=== PATIENT | female | born 1965 | race Caucasian/White ===

== ENCOUNTER → 2016-03-19 | Outpatient (CLI) | payer OTHER ==
--- NOTE | 2016-03-19 11:54 | MR ---
MRI of the brain with and without contrast HISTORY: MS follow-up COMPARISON: 03/20/2015 TECHNIQUE: T1-weighted sagittal, T2, FLAIR, and diffusion axial, postcontrast T1 axial and coronal views of the brain are submitted. CONTRAST: 18 mL MultiHance FINDINGS: There is no evidence of acute ischemia. The ventricles, basal cisterns, and sulci overlying the co nvexities are consistent with the patient's age. There is no mass effect or enhancing mass. Craniocervical junction maintained. Sella turcica has a normal appearance. Changes of chronic sinusit is noted. T2 Lesions Present : Yes Approximate Number of Lesions: Approximately 20 lesions are noted in the right cerebral hemisphere an d 20 lesions on the left. Locations Identified : Predominantly small superficial and deep white matter lesions. No significant juxtacortical or pericallosal involvement. No temporal or infratentorial abnormality seen. Size of Largest Lesion(s): 1. Largest lesion right cerebral hemisphere is located within the posterior right conn radiata and measures 5.2 mm in greatest dimension and stable from previous. 2. largest lesion left cerebral hemisphere measures 4 mm and stable. Enhancing Lesion(s) Present: None Change from Prior: Stable IMPRESSION: 1. Stable diffuse white matter changes unchanged in number, size or morphology from previous exam. Co rrelate for demyelinating process.
== END | disposition home or self-care (01) ==
LOC: RADMRIMAIN 09:29
PROVIDERS: ATTEND Psychiatry & Neurology Neurology
DX: R90.82 White matter disease, unspecified (principal)
CPT/HCPCS: 70553; A9577

== ENCOUNTER → 2016-05-16 | Outpatient (CLI) | payer OTHER ==
[2016-05-16 12:57] LABS: Basophils # (A) 0.1 k/uL (0-0.2); Basophils % (A) 1 %; CH 27.6; CHCM 31.3; Eosinophils # (A) 0.3 k/uL (0-0.7); Eosinophils % (A) 3 %; HCT 43.4 % (34.0-46.0); HDW 2.54; HGB 14.1 gm/dL (11.4-16.0); Luc # (Auto) 0.16; Luc % (Auto) 2; Lymphocytes # (A) 2.5 k/uL (1.0-4.8); Lymphocytes % (A) 30 %; MCH 28.8 pg (25.0-35.0); MCHC 32.5 g/dL (31.0-37.0); MCV 88.6 fL (80.0-100.0); Monocytes # (A) 0.3 k/uL (0-1.0); Monocytes % (A) 4 %; Neutrophils # (A) 4.9 k/uL (1.3-7.7); Neutrophils % (A) 60 %; RDW 13.7 % (11.5-15.5); WBC 8.2 k/uL (3.8-10.6); WBC (Perox) 8.66
[2016-05-16 13:38] LABS: ALT 24 U/L (9-52); AST 22 U/L (14-36); Alkaline Phosphatase 198 U/L (38-126); Anion Gap 11 mmol/L; Blood Urea Nitrogen 15 mg/dL (7-17); Calcium 9.9 mg/dL (8.4-10.2); Carbon Dioxide 23 mmol/L (22-30); Chloride 110 mmol/L (98-107); Glucose 88 mg/dL (74-99); Non-African American GFR(MDRD) >60 (>60 ml/min/1.73 sqM); Potassium 4.3 mmol/L (3.5-5.1); Sodium 144 mmol/L (137-145); Total Bilirubin 0.5 mg/dL (0.2-1.3); Total Protein 7.2 g/dL (6.3-8.2)
[2016-05-16 14:22] LABS: Vitamin B12 406 pg/mL (239-931)
== END | disposition home or self-care (01) ==
LOC: LABWHC1 12:38
PROVIDERS: ATTEND Nurse Practitioner Acute Care
DX: G35 Multiple sclerosis (principal); E55.9 Vitamin D deficiency, unspecified
CPT/HCPCS: 36415; 80053; 82306; 82607; 84439; 84443; 84481; 85025

== ENCOUNTER → 2016-06-06 | Outpatient (CLI) | payer OTHER ==
--- NOTE | 2016-06-06 07:52 | US ---
EXAMINATION TYPE: US abdomen limited DATE OF EXAM: 06/06/2016 7:17 AM COMPARISON: NONE CLINICAL HISTORY: 50-year-old female R10.11 RUQ abdominal Pain. TECHNIQUE: Multiple sonographic images of the right upper quadrant are obtained. FINDINGS: Liver Length: 15.5 cm Gallbladder Wall: 0.2 cm CBD: 7.1 mm Right Kidney: 10.5 x 4.5 x 4.4 cm Pancreas: Within normal limits Liver: Coarsened echotexture without focal lesion. Gallbladder: No abnormal gallbladder distention, wall thickening, pericholecystic fluid, or shadowin g calculi. Evidence for sonographic Sanders's sign: yes CBD: Mildly dilated with no obstructing lesion seen in the upper to mid bile duct. Right Kidney: No hydronephrosis. IMPRESSION: 1. Coarsened echotexture of the liver could represent underlying nonspecific hepatocellular disease. Clinically correlate. 2. Mildly dilated bile duct. Correlate with alkaline phosphatase and bilirubin levels for the possibi lity of a biliary obstruction. ERCP or MRCP as indicated. 3. Positive sonographic Sanders sign without sonographic findings of cholelithiasis or acute cholecyst itis. This could represent referred pain. If further imaging evaluation of the gallbladder is desired , HIDA scan with ejection fraction can be performed.
== END | disposition home or self-care (01) ==
LOC: RADUSWWP 06:54
PROVIDERS: ATTEND Family Medicine
DX: K83.8 Other specified diseases of biliary tract (principal); R10.11 Right upper quadrant pain
CPT/HCPCS: 76705

== ENCOUNTER 2016-06-18 10:02 | Day surgery (SDC) | payer OTHER ==
[2016-06-14 11:47] VITALS: BMI 28.9
[~2016-06-18 10:02] MED LIST: LACTATED RINGERS 1,000 ML IV SCH
[2016-06-18 11:24] VITALS: TEMP 97.9
[2016-06-18] MEDS ORDERED: LIDOCAINE 1% 20 ML VIAL (10MG/ML) FOR IV START INTRADERMA ONE (11:24)
[2016-06-18] MEDS ORDERED: LIDOCAINE 1% INJ 10MG/ML (20 ML MDV) ONE (11:46)
[2016-06-18] MEDS ORDERED: PROPOFOL 10 MG/ML 20 ML VIAL IV ONE (11:46)
--- NOTE | 2016-06-18 12:13 | P.PCN ---
Date of Procedure: 06/18/16 Procedure(s) Performed: Procedure: Esophagogastroduodenoscopy and biopsy. Postoperative diagnosis: Epigastric pain and dysphagia. Postoperative diagnosis: 1. Small sliding hiatal hernia with no definite esophagitis or complicated reflux disease. 2. Small sticky was exudates in the esophagus raising the possibility of liz esophagitis. 3. Mild antral gastritis and duodenitis with no ulcers or gastric outlet obstruction. 4. Multiple biopsies obtained from the duodenum, antrum and esophagus. Preparation and sedation: Was provided by anesthesia. Brief clinical history: The patient is a 50-year-old female who I have evaluated recently in the office regarding the above symptoms. She indicated that this has been going on for several years. She did have an upper endoscopy in August 2013 that showed mild antral gastritis. Back than, her esophageal biopsies showed chronic esophagitis. Procedure: With the patient on her left lateral decubitus position and after informed consent and adequate sedation, I passed the Olympus-GIF 160 video upper endoscope through the cricopharyngeus down the esophagus. GE junction was around 38 cm from the incisors and there was a small sliding hiatal hernia. There were no erosions, ulcers, strictures or Asif's for this. There was small white sticky exudates that I was not certain if they represented food debris or liz infection. I obtained biopsies at the end of the exam. The stomach was also insufflated with air and inspected in detail including the retroflex view in the cardia. There was some mottling and erythema in the antrum but no ulcers or erosions. Pyloric channel did not show any ulcers. Duodenal bulb, post bulbar area and descending duodenum showed minimal erythema. Because of her symptoms, I obtained biopsies from the duodenum, antrum and addition to the esophageal biopsies, I mentioned earlier, then the endoscope was withdrawn. The patient tolerated the procedure well. Plan: The patient was reassured. Will await biopsy results and make further plans based on her course and biopsy results. I will keep you updated on her progress.
[2016-06-18 12:44] VITALS: RESP 16
[2016-06-18 12:57] VITALS: BP 152/90; PULSE 78
== END 2016-06-18 13:12 | disposition home or self-care (01) ==
LOC: ORWHC2ENDO 10:02
DX: K21.0 Gastro-esophageal reflux disease with esophagitis (principal); K44.9 Diaphragmatic hernia without obstruction or gangrene; J44.9 Chronic obstructive pulmonary disease, unspecified; F17.200 Nicotine dependence, unspecified, uncomplicated; G35 Multiple sclerosis; F41.9 Anxiety disorder, unspecified; Z79.1 Long term (current) use of non-steroidal anti-inflammatories (NSAID); Z79.891 Long term (current) use of opiate analgesic; Z79.899 Other long term (current) drug therapy; Z88.6 Allergy status to analgesic agent; Z88.0 Allergy status to penicillin; Z88.8 Allergy status to other drugs, medicaments and biological substances
CPT/HCPCS: 88305; 88312; 88342; 43239; J2001; J2704

== ENCOUNTER → 2017-04-30 | Outpatient (CLI) | payer OTHER ==
--- NOTE | 2017-04-30 12:24 | MR ---
EXAMINATION TYPE: MR lumbar spine wo con DATE OF EXAM: 04/30/2017 COMPARISON: 10/08/2013 HISTORY: Low back pain TECHNIQUE: T1 and T2 axial and sagittal images of the lumbar spine are submitted. Exam is limited d ue to severe patient motion artifact. FINDINGS: There is no abnormal signal seen within the visualized spinal cord or paraspinal soft tissu es. At L1-2 there is no obvious disc herniation or canal stenosis. No foraminal encroachment. At L2-3 there is there is facet arthropathy with no obvious disc herniation or canal stenosis. No for aminal encroachment. At L3-4 there is more advanced facet arthropathy and ligamentum flavum hypertrophy. Mild circumferent ial disc bulging. No foraminal encroachment or canal stenosis. At L4-5 there is advanced facet arthropathy with ligamentum flavum hypertrophy. Mild bilateral forami nal encroachment. No Canal stenosis. At L5-S1 there is facet arthropathy with mild central disc bulging and mild bilateral foraminal encro achment. Ligamentum flavum hypertrophy noted. There is an annular tear. IMPRESSION: 1. Stable multilevel degenerative disc disease with more advanced facet arthropathy. No disc herniati on or canal stenosis. Multilevel mild foraminal encroachment. Routine exam was severely limited due t o extreme motion artifact particularly on the axial images.
--- NOTE | 2017-04-30 17:24 | MR ---
EXAMINATION TYPE: MR brain wo/w con DATE OF EXAM: 04/30/2017 COMPARISON: Prior MRI brain March 19, 2016. HISTORY: MS TECHNIQUE: Multiplanar, multisequence images of the brain and brainstem is performed without and with IV contras t, utilizing 7.5 mL intravenous Gadavist gadolinium contrast is administered intravenously. Demyelin ating disease protocol with additional Sagittal Flair sequence performed. FINDINGS: T2 Lesions Present : Yes Approximate Number of Lesions: Approximately 40 scattered lesions redemonstrated. Locations Identified : Predominately small superficial and deep white matter lesions again seen. Size of Reference Lesion(s): 1. 0.5 cm x 0.3 cm x 0.3 cm on axial image 22 and sagittal image 26 right parietal deep white matter lesion stable 2 0.4 cm x 0.4 cm x 0.3 cm on axial image 25 and sagittal image 13 high left frontal lesion stable. Enhancing Lesion(s) Present: No T1 Hypointense Lesion(s) Present: Yes Change from Prior: Stable, Increase in number, decrease Diffusion weighted images demonstrate no evidence of a recent infarct or other diffusion abnormality. There is no worrisome extra-axial fluid collection. The ventricular system and cisternal spaces ar e normal in size and appearance. The brain volume is age appropriate. Midline structures demonstrate normal morphology. The craniocervical junction appears within normal limits. Post contrast images demonstrate no abnormal enhancement. The dural venous sinuses appear pa tent. There is interval improvement in mucosal thickening and fluid bilateral maxillary sinuses. Brittaney roberto paranasal sinuses are clear. The globes are intact bilaterally. IMPRESSION: Fairly moderate nonspecific white matter changes redemonstrated may be on basis of known multiple sclerosis. No new or enhancing lesions are evident.
== END | disposition home or self-care (01) ==
LOC: RADMRIMAIN 10:35
PROVIDERS: ATTEND Psychiatry & Neurology Neurology
DX: M51.36 Other intervertebral disc degeneration, lumbar region (principal); M46.96 Unspecified inflammatory spondylopathy, lumbar region; R90.89 Other abnormal findings on diagnostic imaging of central nervous system
CPT/HCPCS: 70553; 72148; A9581

== ENCOUNTER → 2017-10-14 | Outpatient (CLI) | payer OTHER ==
[2017-10-14 13:44] LABS: Basophils % (A) 0 %; Eosinophils # (A) 0.1 k/uL (0-0.7); Eosinophils % (A) 1 %; HCT 43.5 % (34.0-46.0); HGB 13.9 gm/dL (11.4-16.0); Lymphocytes # (A) 1.9 k/uL (1.0-4.8); Lymphocytes % (A) 22 %; MCH 27.5 pg (25.0-35.0); MCHC 31.9 g/dL (31.0-37.0); MCV 86.3 fL (80.0-100.0); Mean Platelet Volume 6.9; Monocytes # (A) 0.3 k/uL (0-1.0); Monocytes % (A) 3 %; Neutrophils # (A) 6.4 k/uL (1.3-7.7); Neutrophils % (A) 72 %; Platelet Count 247 k/uL (150-450); RBC 5.03 m/uL (3.80-5.40); RDW 14.4 % (11.5-15.5); WBC 8.8 k/uL (3.8-10.6)
[2017-10-14 13:55] LABS: ALT 25 U/L (9-52); AST 20 U/L (14-36); Alkaline Phosphatase 135 U/L (38-126); Anion Gap 6 mmol/L; Blood Urea Nitrogen 10 mg/dL (7-17); Carbon Dioxide 24 mmol/L (22-30); Chloride 112 mmol/L (98-107); Glucose 79 mg/dL (74-99); Potassium 4.4 mmol/L (3.5-5.1); Sodium 142 mmol/L (137-145); Total Bilirubin 0.4 mg/dL (0.2-1.3); Total Protein 6.4 g/dL (6.3-8.2)
[2017-10-14 20:54] LABS: Vitamin D 25 Hydroxy 29.3 ng/mL (30.0-100.0)
== END | disposition home or self-care (01) ==
LOC: LABWHC1 12:38
PROVIDERS: ATTEND Nurse Practitioner Acute Care
DX: G35 Multiple sclerosis (principal); E55.9 Vitamin D deficiency, unspecified; R53.83 Other fatigue
CPT/HCPCS: 36415; 80053; 82306; 82607; 84207; 85025

== ENCOUNTER 2018-04-04 19:26 | Emergency (ER) | payer OTHER ==
[2018-04-04 19:34] VITALS: BP 146/69; PULSE 86; RESP 18; TEMP 97.5
--- NOTE | 2018-04-04 19:50 | ED ---
Back Pain HPI - General Chief Complaint: Back Pain/Injury Stated Complaint: Back pain/flank pain Time Seen by Provider: 04/04/18 19:37 Source: patient Limitations: no limitations - History of Present Illness Initial Comments: 52-year-old female presents with leftt low back discomfort this been on and off for the last few weeks. Patient was seen at [facility] ER week ago for the same thing. Patient denies any direct injury. There is no fall. Patient having pain in her left low back rib area discomfort. Patient states it's hard to take a full breath due to the pain. Patient has been taking some Tylenol at home. Patient does have a history of asthma. Patient denies any bowel bladder incontinence or saddle numbness. Patient has been using a heating pad. MD Complaint: back pain -: week(s) Radiation: none Severity scale (1-10): 10 Quality: burning Consistency: constant Improves With: none Worsens With: movement Treatments Prior to Arrival: heat therapy - Related Data Home Medications Medication Instructions Recorded Confirmed Dicyclomine HCl 10 mg PO BID PRN 07/08/13 06/18/16 ALPRAZolam [Xanax] 2 mg PO QID PRN 09/06/13 06/18/16 SUMAtriptan SUCCINATE [Imitrex] 50 mg PO BID PRN 03/28/15 06/18/16 Albuterol Inhaler [Ventolin Hfa 2 puff INHALATION RT-QID PRN 07/03/15 06/18/16 Inhaler] Avonex 1 dose IM SA 07/03/15 06/18/16 Baclofen [Lioresal] 10 mg PO TID PRN 07/03/15 06/18/16 Butalb/APAP/Caff 50-325-40Mg 1 tab PO Q6H PRN 07/03/15 06/18/16 [Fioricet 50-325-40] Fluticasone Nasal Emmet [Flonase 1 spray EA NOSTRIL DAILY 07/03/15 06/18/16 Nasal Emmet] Omeprazole [PriLOSEC] 20 mg PO DAILY 07/03/15 06/18/16 oxyCODONE-APAP 10-325MG [Percocet 1 tab PO TID PRN 07/03/15 06/18/16 10-325 mg] Budesonide/Formoterol Fumarate 2 puff INHALATION BID 06/14/16 06/18/16 [Symbicort 160-4.5 Mcg Inhaler] Naproxen 500 mg PO Q12HR 06/14/16 06/18/16 Previous Rx's Medication Instructions Recorded Cyclobenzaprine HCl 10 mg PO TID #20 tab 04/04/18 Hydrocodone/Acetaminophen [Cadet 1 each PO Q6HR PRN #12 tab 04/04/18 5-325] Allergies Allergy/AdvReac Type Severity Reaction Status Date / Time aspirin Allergy Itching Verified 06/18/16 11:11 ibuprofen Allergy Itching Verified 06/18/16 11:11 Penicillins Allergy Rash/Hives Verified 06/18/16 11:11 Review of Systems ROS Statement: Those systems with pertinent positive or pertinent negative responses have been documented in the HPI. ROS Other: All systems not noted in ROS Statement are negative. Respiratory: Denies: cough, dyspnea Endocrine: Denies: fatigue Gastrointestinal: Denies: abdominal pain Musculoskeletal: Reports: back pain Neurological: Reports: abnormal gait (arrived in WC). Denies: weakness, numbness, paresthesias Past Medical History Past Medical History: COPD, GERD/Reflux, Musculoskeletal Disorder, Neurologic Disorder Additional Past Medical History / Comment(s): DDD, hx migraines, M.S., constant epigastric pain History of Any Multi-Drug Resistant Organisms: None Reported Past Surgical History: Section, Hysterectomy, Orthopedic Surgery, Tubal Ligation Additional Past Surgical History / Comment(s): rt knee surgery cyst off right eye Past Anesthesia/Blood Transfusion Reactions: No Reported Reaction Past Psychological History: Anxiety, Panic Disorder Smoking Status: Current every day smoker Past Alcohol Use History: None Reported Past Drug Use History: None Reported - Past Family History Mother Sister(s) Additional Family Medical History / Comment(s): mother passed age 42 unknown reason General Exam Limitations: no limitations General appearance: alert Neck exam: Present: normal inspection. Absent: tenderness, meningismus, lymphadenopathy Respiratory exam: Present: normal lung sounds bilaterally. Absent: respiratory distress, wheezes, rales, rhonchi, stridor Cardiovascular Exam: Present: regular rate, normal rhythm, normal heart sounds. Absent: systolic murmur, diastolic murmur, rubs, gallop, clicks GI/Abdominal exam: Present: soft, normal bowel sounds. Absent: distended, tenderness, guarding, rebound, rigid Back exam: Present: normal inspection, tenderness, CVA tenderness (L), muscle spasm, paraspinal tenderness (left, mid-low). Absent: full ROM Neurological exam: Present: alert, oriented X3, CN II-XII intact Psychiatric exam: Present: normal affect, normal mood Skin exam: Present: warm, dry, intact, normal color. Absent: rash Course Vital Signs 04/04/18 19:29 Temperature 97.5 F L Pulse Rate 86 Respiratory 18 Rate Blood Pressure 146/69 O2 Sat by Pulse 98 Oximetry Medical Decision Making - Medical Decision Making Reviewed x-rays and radiology interpretation negative for any acute changes except to Jo changes patient and family aware. Patient does admit to medications helping slightly. Patient will be discharged with muscle relaxer and pain medication. Patient encouraged to do gentle stretching along with heat. Patient have close follow-up with family doctor if not improving. Return to ER if things are worsening.discussed with dr. winter Disposition Clinical Impression: Strain of lumbar region Disposition: HOME SELF-CARE Condition: Good Instructions (If sedation given, give patient instructions): Acute Low Back Pain (ED) Prescriptions: Cyclobenzaprine HCl 10 mg PO TID #20 tab Hydrocodone/Acetaminophen [Cadet 5-325] 1 each PO Q6HR PRN #12 tab PRN Reason: Pain Is patient prescribed a controlled substance at d/c from ED?: Yes When asked, does pt state using other controlled substances?: No If prescribed controlled substance>3 days was MAPS reviewed?: Prescribed <3 Days If opioid is for acute pain is fill amount 7 days or less?: No If Rx opioid, was Start Talking consent form obtained?: Yes Referrals: Michele Andrews MD [Primary Care Provider] - 1-2 days Time of Disposition: 20:36
[2018-04-04] MEDS ORDERED: KETOROLAC 60 MG/2 ML VIAL IM STA (20:04)
--- NOTE | 2018-04-04 20:04 | XR ---
EXAMINATION TYPE: XR KUB DATE OF EXAM: 04/04/2018 7:58 PM CLINICAL HISTORY: Left rib and abdominal pain TECHNIQUE: 2 upright AP views of the abdomen are obtained. COMPARISON: None. FINDINGS: No dilated loops of large or small bowel. No visceromegaly. Multilevel degenerative changes are seen of the spine and hips. No acute osseous fracture. Limited evaluation of the lower thorax is unremarkable. IMPRESSION: No acute intra-abdominal or pelvic process.
--- NOTE | 2018-04-04 20:05 | XR ---
EXAMINATION TYPE: XR ribs LT w pa chest x-ray DATE OF EXAM: 04/04/2018 CLINICAL HISTORY: Left rib pain TECHNIQUE: Single frontal view of the chest is obtained. Additional oblique views of the left ribs ar e also obtained. COMPARISON: None FINDINGS: There is no focal air space opacity, pleural effusion, or pneumothorax seen. The cardiac silhouette size is within normal limits. The osseous structures are intact. No evidence of displace d rib fracture. IMPRESSION: No acute process. No displaced rib fracture.
[2018-04-04] MEDS ORDERED: CYCLOBENZAPRINE 10 MG TAB PO STA (20:08)
== END 2018-04-04 21:01 | disposition home or self-care (01) ==
LOC: EC 19:26
DX: S39.012A Strain of muscle, fascia and tendon of lower back, initial encounter (principal); J44.9 Chronic obstructive pulmonary disease, unspecified; K21.9 Gastro-esophageal reflux disease without esophagitis; F41.0 Panic disorder [episodic paroxysmal anxiety]; F17.200 Nicotine dependence, unspecified, uncomplicated; Z79.51 Long term (current) use of inhaled steroids; Z79.899 Other long term (current) drug therapy; Z88.0 Allergy status to penicillin; Z88.6 Allergy status to analgesic agent; X58.XXXA Exposure to other specified factors, initial encounter
CPT/HCPCS: 71101; 74018; 99283; 96372; J1885

== ENCOUNTER → 2018-04-30 | Outpatient (CLI) | payer OTHER ==
[2018-04-30 12:56] LABS: Basophils # (A) 0.1 k/uL (0-0.2); Basophils % (A) 1 %; Eosinophils # (A) 0.1 k/uL (0-0.7); Eosinophils % (A) 1 %; HCT 46.3 % (34.0-46.0); HGB 14.2 gm/dL (11.4-16.0); Lymphocytes # (A) 2.5 k/uL (1.0-4.8); Lymphocytes % (A) 27 %; MCH 26.4 pg (25.0-35.0); MCHC 30.6 g/dL (31.0-37.0); MCV 86.3 fL (80.0-100.0); Mean Platelet Volume 5.9; Monocytes # (A) 0.3 k/uL (0-1.0); Monocytes % (A) 3 %; Neutrophils # (A) 6.3 k/uL (1.3-7.7); Neutrophils % (A) 67 %; Platelet Count 495 k/uL (150-450); RBC 5.36 m/uL (3.80-5.40); WBC 9.4 k/uL (3.8-10.6)
[2018-04-30 18:57] LABS: Vitamin D 25 Hydroxy 33.7 ng/mL (30.0-100.0)
[2018-04-30 20:52] LABS: Albumin 4.7 g/dL (3.80-4.90); Albumin/Globulin Ratio 1.96 (1.60-3.17); Anion Gap 9.1 mmol/L (4.00-12.00); Calcium 10.2 mg/dL (8.7-10.3); Carbon Dioxide 21.9 mmol/L (21.6-31.8); Globulin 2.4 g/dL (1.6-3.3); Potassium 4.4 mmol/L (3.5-5.5); Total Bilirubin 0.3 mg/dL (0.3-1.2); Total Protein 7.1 g/dL (6.2-8.2)
== END ==
LOC: LABWHC1 11:35
PROVIDERS: ATTEND Nurse Practitioner Acute Care
DX: E55.9 Vitamin D deficiency, unspecified (principal); R53.82 Chronic fatigue, unspecified
CPT/HCPCS: 36415; 80053; 82306; 82607; 84207; 85025

== ENCOUNTER 2019-09-02 09:52 | Day surgery (SDC) | payer OTHER ==
[2019-09-01 08:51] VITALS: BMI 22.7
[2019-09-02 10:11] VITALS: TEMP 98.2
[2019-09-02] MEDS ORDERED: PROPOFOL 10 MG/ML 20 ML VIAL IV ONE (10:27)
--- NOTE | 2019-09-02 10:28 | P.GSHP ---
History of Present Illness H&P Date: 09/02/19 Chief Complaint: Screening colonoscopy This a 54-year-old female been safe for screening colonoscopy. Patient denies any significant GI complaints. Past Medical History Past Medical History: COPD, GERD/Reflux, Hearing Disorder / Deafness, Musculoskeletal Disorder, Neurologic Disorder Additional Past Medical History / Comment(s): DDD, hx migraines, M.S., constant epigastric pain. DEAF RT EAR History of Any Multi-Drug Resistant Organisms: None Reported Past Surgical History: Section, Hysterectomy, Orthopedic Surgery, Tubal Ligation Additional Past Surgical History / Comment(s): rt knee surgery, cyst off right eye, Past Anesthesia/Blood Transfusion Reactions: No Reported Reaction Smoking Status: Current every day smoker - Past Family History Mother Sister(s) Additional Family Medical History / Comment(s): mother passed age 42 unknown reason Medications and Allergies Home Medications Medication Instructions Recorded Confirmed Type SUMAtriptan succinate [Imitrex] 50 mg PO BID PRN 03/28/15 09/02/19 History Albuterol Inhaler (Mhu) [Ventolin 2 puff INHALATION RT-QID PRN 07/03/15 09/02/19 History Hfa Inhaler] Butalb/APAP/Caff 50-325-40Mg 1 tab PO Q6H PRN 07/03/15 09/02/19 History [Fioricet 50-325-40] oxyCODONE-APAP 10-325MG [Percocet 1 tab PO TID PRN 07/03/15 09/02/19 History 10-325 mg] ALPRAZolam [Xanax] 1 mg PO QID 09/01/19 09/02/19 History Baclofen [Lioresal] 20 mg PO TID 09/01/19 09/02/19 History Glycopyrrolate/Formoterol Fum 1 puff INHALATION DAILY 09/01/19 09/02/19 History [Bevespi Aerosphere Inhaler] Montelukast [Singulair] 10 mg PO DAILY 09/01/19 09/02/19 History Omeprazole 40 mg PO DAILY 09/01/19 09/02/19 History Allergies Allergy/AdvReac Type Severity Reaction Status Date / Time aspirin Allergy Itching Verified 09/02/19 10:07 ibuprofen Allergy Itching Verified 09/02/19 10:07 Penicillins Allergy Rash/Hives Verified 09/02/19 10:07 Surgical - Exam Vital Signs Temp Pulse Resp BP Pulse Ox 98.2 F 86 15 115/67 99 09/02/19 10:11 09/02/19 10:11 09/02/19 10:11 09/02/19 10:11 09/02/19 10:11 - General well developed, well nourished, no distress - Eyes PERRL - ENT normal pinna - Neck no masses - Respiratory normal expansion - Cardiovascular Rhythm: regular - Abdomen Abdomen: soft, non tender Assessment and Plan Assessment: We'll perform screening colonoscopy.
--- NOTE | 2019-09-02 10:38 | P.OP ---
Date of Procedure: 09/02/19 Preoperative Diagnosis: Screening colonoscopy Postoperative Diagnosis: Normal colonoscopy Procedure(s) Performed: Colonoscopy Anesthesia: MAC Surgeon: Gino Diaz Pathology: none sent Condition: stable Disposition: PACU Description of Procedure: PROCEDURE: The patient was placed on the endoscopy table in the lateral position. Digital rectal examination was performed which revealed no abnormalities. s. Flexible colonoscope was then placed in the patient's anus and passed throughout the entire colon. The ileocecal valve was visualized. The cecum, ascending, transverse, descending and sigmoid colon were normal. The rectum was normal as well. There were no masses, polyps or diverticula noted in the entire colon.
[2019-09-02 10:49] VITALS: RESP 16
[2019-09-02 11:09] VITALS: BP 122/76; PULSE 76
== END 2019-09-02 11:45 | disposition home or self-care (01) ==
LOC: ORWHC2ENDO 09:52
PROVIDERS: ATTEND Surgery
DX: Z12.11 Encounter for screening for malignant neoplasm of colon (principal); K21.9 Gastro-esophageal reflux disease without esophagitis; R10.13 Epigastric pain; J44.9 Chronic obstructive pulmonary disease, unspecified; G43.909 Migraine, unspecified, not intractable, without status migrainosus; G35 Multiple sclerosis; H91.91 Unspecified hearing loss, right ear; Z90.710 Acquired absence of both cervix and uterus; Z98.51 Tubal ligation status; Z98.890 Other specified postprocedural states; F17.210 Nicotine dependence, cigarettes, uncomplicated; Z79.899 Other long term (current) drug therapy; Z88.6 Allergy status to analgesic agent; Z88.0 Allergy status to penicillin
CPT/HCPCS: J2704; G0121

== ENCOUNTER → 2019-09-30 | Outpatient (CLI) | payer OTHER ==
--- NOTE | 2019-10-01 08:54 | MM ---
Reason for exam: screening (asymptomatic). Last mammogram was performed 8 years and 11 months ago. History: Patient is postmenopausal. Family history of breast cancer in maternal aunt. Took hormonal contraceptives for 2 months beginning at age 22. Physical Findings: A clinical breast exam by your physician is recommended on an annual basis and results should be correlated with mammographic findings. MG Screening Mammo w CAD Bilateral CC and MLO view(s) were taken. Prior study comparison: October 30, 2010, CAD bilateral diagnostic mammogram. June 19, 2009, right breast diagnostic digital ba. The breast tissue is heterogeneously dense. This may lower the sensitivity of mammography. Finding #1: There is a 7 mm equal density (isodense) mass in the outer quadrant of the right breast. Finding #2: There are typically benign calcifications in the left breast. ASSESSMENT: Incomplete: need additional imaging evaluation, BI-RAD 0 RECOMMENDATION: Special view mammogram of the right breast. If lesion persists on supplemental views, image directed ultrasound is recommended. [facility] will attempt to contact patient to return for supplemental views and ultrasound if indicated.
== END | disposition home or self-care (01) ==
LOC: RADMAMWWP 10:46
PROVIDERS: ATTEND Family Medicine
DX: Z12.31 Encounter for screening mammogram for malignant neoplasm of breast (principal)
CPT/HCPCS: 77067

== ENCOUNTER → 2019-10-05 | Outpatient (CLI) | payer OTHER ==
--- NOTE | 2019-10-05 11:10 | MM ---
Reason for exam: additional evaluation requested from abnormal screening. Last mammogram was performed less than 1 month ago. History: Patient is postmenopausal. Family history of breast cancer in maternal aunt. Took hormonal contraceptives for 2 months beginning at age 22. Physical Findings: Nurse did not find any significant physical abnormalities on exam. MG Work Up Mamm w CAD RT Spot compression CC, spot compression MLO, and ML view(s) were taken of the right breast. Prior study comparison: September 30, 2019, bilateral MG screening mammo w CAD. October 30, 2010, CAD bilateral diagnostic mammogram. Nodular density 6.1cm from nipple measures 6.5mm. These results were verbally communicated with the patient and result sheet given to the patient on 10/05/19. ASSESSMENT: Incomplete: need additional imaging evaluation, BI-RAD 0 RECOMMENDATION: Ultrasound of the right breast.
--- NOTE | 2019-10-05 11:11 | USB ---
Reason for exam: additional evaluation requested from abnormal screening. History: Patient is postmenopausal. Family history of breast cancer in maternal aunt. Took hormonal contraceptives for 2 months beginning at age 22. US Breast Workup Limited RT Right limited breast ultrasound including focal area of concern, retroareolar and axilla demonstrates a 4 x 2 x 5mm oval, cystic lesion at 11 o'clock, a 6 x 3 x 5mm oval, cystic lesion at 10 o'clock, a 7mm oval lymph node at the axilla and a 9mm oval lymph node at the axilla. These results were verbally communicated with the patient and result sheet given to the patient on 10/05/19. ASSESSMENT: Benign, BI-RAD 2 RECOMMENDATION: Return to routine screening mammogram schedule for both breasts.
== END | disposition home or self-care (01) ==
LOC: RADMAMWWP 09:18
PROVIDERS: ATTEND Family Medicine
DX: R92.8 Other abnormal and inconclusive findings on diagnostic imaging of breast (principal)
CPT/HCPCS: 77065

== ENCOUNTER 2020-09-25 11:07 | Day surgery (SDC) | payer OTHER ==
[2020-09-21 15:26] VITALS: BMI 25.2
[~2020-09-25 11:07] MED LIST changes: +LIDOCAINE 1% (10MG/ML) FOR IV START INTRADERMA PRN
[2020-09-25 12:05] VITALS: TEMP 97.4
[2020-09-25] MEDS ORDERED: PROPOFOL 10 MG/ML 20 ML VIAL IV ONE (12:24)
--- NOTE | 2020-09-25 12:33 | P.GSHP ---
History of Present Illness H&P Date: 09/25/20 Chief Complaint: Hemorrhoids Is a 55-year-old female this completes of hemorrhoids and some intermittent rectal bleeding. Patient notes today for colonoscopy Past Medical History Past Medical History: COPD, GERD/Reflux, Hearing Disorder / Deafness, Musculoskeletal Disorder, Neurologic Disorder, Osteoarthritis (OA) Additional Past Medical History / Comment(s): DDD, hx migraines, M.S., BACK PAIN,. DEAF RT EAR History of Any Multi-Drug Resistant Organisms: None Reported Past Surgical History: Section, Hysterectomy, Orthopedic Surgery, Tubal Ligation Additional Past Surgical History / Comment(s): rt knee surgery- ARTHROSCOPIC , cyst off right eye, RECONSTRUCTIVE SURGERY ON RIGHT KNEE , COLONOSCOPY Past Anesthesia/Blood Transfusion Reactions: No Reported Reaction Smoking Status: Current every day smoker - Past Family History Mother Sister(s) Additional Family Medical History / Comment(s): mother passed age 42 unknown reason Mother Family Medical History: No Reported History Additional Family Medical History / Comment(s): MOTHER PASSED AT AGE 42 Medications and Allergies Home Medications Medication Instructions Recorded Confirmed Type SUMAtriptan succinate [Imitrex] 50 mg PO BID PRN 03/28/15 09/25/20 History Butalb/APAP/Caff 50-325-40Mg 1 tab PO Q8HR PRN 07/03/15 09/21/20 History [Fioricet 50-325-40] ALPRAZolam [Xanax] 1 mg PO QID 09/01/19 09/21/20 History Baclofen [Lioresal] 20 mg PO TID 09/01/19 09/21/20 History Glycopyrrolate/Formoterol Fum 1 puff INHALATION DAILY 09/01/19 09/21/20 History [Bevespi Aerosphere Inhaler] Montelukast [Singulair] 10 mg PO 1800 09/01/19 09/21/20 History Omeprazole 40 mg PO DAILY 09/01/19 09/25/20 History Albuterol Sulfate [Proair Hfa] 1 - 2 puff INHALATION Q6HR PRN 09/21/20 09/21/20 History Ascorbic Acid [Vitamin C with Carolyn 1,000 mg PO DAILY 09/21/20 09/21/20 History Hips] Cholecalciferol [Vitamin D3 (25 25 mcg PO DAILY 09/21/20 09/21/20 History Mcg = 1000 Iu)] Fluticasone Propionate [Flovent 2 puff INHALATION BID 09/21/20 09/21/20 History Hfa 220 mcg] Interferon Beta-1A [Avonex 30 MCG 30 mcg IM SA 09/21/20 09/25/20 History Pen] Vitamin B Complex 1 each PO DAILY 09/21/20 09/21/20 History Vitamin E (Dl,Tocopheryl Acet) 400 unit PO DAILY 09/21/20 09/21/20 History [Vitamin E (400 Iu = 180 mg)] Allergies Allergy/AdvReac Type Severity Reaction Status Date / Time aspirin Allergy Itching Verified 09/25/20 11:39 ibuprofen Allergy Itching Verified 09/25/20 11:39 menthol [From Icy Hot] Allergy Dyspnea Verified 09/25/20 11:39 methyl salicylate Allergy Dyspnea Verified 09/25/20 11:39 [From Icy Hot] Penicillins Allergy Rash/Hives Verified 09/25/20 11:39 Surgical - Exam Vital Signs Temp Pulse Resp BP Pulse Ox 97.4 F L 78 16 132/64 97 09/25/20 11:54 09/25/20 11:54 09/25/20 11:54 09/25/20 11:54 09/25/20 11:54 - General well developed, well nourished, no distress - Eyes PERRL - ENT normal pinna - Neck no masses - Respiratory normal expansion - Cardiovascular Rhythm: regular - Abdomen Abdomen: soft, non tender Assessment and Plan Assessment: History of hemorrhoids. Rectal bleeding We'll perform colonoscopy
--- NOTE | 2020-09-25 12:46 | P.OP ---
Date of Procedure: 09/25/20 Preoperative Diagnosis: External hemorrhoids Postoperative Diagnosis: Anal condyloma Procedure(s) Performed: Colonoscopy Anesthesia: MAC Surgeon: Gino Diaz Pathology: none sent Condition: stable Disposition: PACU Description of Procedure: The patient's placed on the endoscopy table in the lateral position. She received IV sedation. Digital rectal exam was performed which revealed external anal mass is suspicious for anal condyloma. The flexible colonoscope was then placed patient anus and passed rotator entire colon. The ileocecal valve was visually. The cecum, ascending and transverse colon appeared normal. The descending and sigmoid colon appeared normal. Scope was back the rectum this was normal. Scope was withdrawn for patient.
[2020-09-25 13:03] VITALS: BP 138/75; PULSE 75; RESP 16
== END 2020-09-25 13:27 | disposition home or self-care (01) ==
LOC: ORWHC2ENDO 11:07
PROVIDERS: ATTEND Surgery
DX: A63.0 Anogenital (venereal) warts (principal); K64.4 Residual hemorrhoidal skin tags; J44.9 Chronic obstructive pulmonary disease, unspecified; K21.9 Gastro-esophageal reflux disease without esophagitis; R29.90 Unspecified symptoms and signs involving the nervous system; M19.90 Unspecified osteoarthritis, unspecified site; F17.210 Nicotine dependence, cigarettes, uncomplicated; H91.90 Unspecified hearing loss, unspecified ear; G43.909 Migraine, unspecified, not intractable, without status migrainosus; Z79.899 Other long term (current) drug therapy; Z88.6 Allergy status to analgesic agent; Z88.0 Allergy status to penicillin; Z88.8 Allergy status to other drugs, medicaments and biological substances
CPT/HCPCS: 45378; J2704

== ENCOUNTER 2020-10-10 08:19 | Emergency (ER) | payer OTHER ==
[2020-10-10 08:29] VITALS: RESP 18; TEMP 98.3
[2020-10-10] MEDS ORDERED: MORPHINE SULFATE 4 MG/ML SYRINGE IM STA (08:53)
--- NOTE | 2020-10-10 09:04 | ED ---
General Adult HPI - General Chief complaint: GI Bleed Stated complaint: rectal bleeding Time Seen by Provider: 10/10/20 08:42 Source: patient, RN notes reviewed Mode of arrival: ambulatory Limitations: no limitations - History of Present Illness Initial comments: 55-year-old female with a past medical history of GERD, COPD, deafness presents to the emergency room for a chief complaint of rectal "polyps." Patient states she has had these for quite some time. She states her doctor referred her to Dr. Diaz and she had a colonoscopy on the he did not address the hemorrhoids. States that today she went to wipe and one started bleeding and is concerned her. States they are still painful. States she did get a call from Dr. Diaz's office last week for another appointment but has not called back. Patient is denying any constipation or difficulty having a bowel movement.Patient has no other complaints at this time including shortness of breath, chest pain, abdominal pain, nausea or vomiting, headache, or visual changes. - Related Data Home Medications Medication Instructions Recorded Confirmed SUMAtriptan succinate [Imitrex] 50 mg PO BID PRN 03/28/15 09/25/20 Butalb/APAP/Caff 50-325-40Mg 1 tab PO Q8HR PRN 07/03/15 09/21/20 [Fioricet 50-325-40] ALPRAZolam [Xanax] 1 mg PO QID 09/01/19 09/21/20 Baclofen [Lioresal] 20 mg PO TID 09/01/19 09/21/20 Glycopyrrolate/Formoterol Fum 1 puff INHALATION DAILY 09/01/19 09/21/20 [Bevespi Aerosphere Inhaler] Montelukast [Singulair] 10 mg PO 1800 09/01/19 09/21/20 Omeprazole 40 mg PO DAILY 09/01/19 09/25/20 Albuterol Sulfate [Proair Hfa] 1 - 2 puff INHALATION Q6HR PRN 09/21/20 09/21/20 Ascorbic Acid [Vitamin C with Carolyn 1,000 mg PO DAILY 09/21/20 09/21/20 Hips] Cholecalciferol [Vitamin D3 (25 25 mcg PO DAILY 09/21/20 09/21/20 Mcg = 1000 Iu)] Fluticasone Propionate [Flovent 2 puff INHALATION BID 09/21/20 09/21/20 Hfa 220 mcg] Interferon Beta-1A [Avonex 30 MCG 30 mcg IM SA 09/21/20 09/25/20 Pen] Vitamin B Complex 1 each PO DAILY 09/21/20 09/21/20 Vitamin E (Dl,Tocopheryl Acet) 400 unit PO DAILY 09/21/20 09/21/20 [Vitamin E (400 Iu = 180 mg)] Previous Rx's Medication Instructions Recorded Hydrocortisone [Anusol-Hc] 1 applic RECTAL BID 5 Days #30 gm 10/10/20 Allergies Allergy/AdvReac Type Severity Reaction Status Date / Time aspirin Allergy Itching Verified 10/10/20 08:29 ibuprofen Allergy Itching Verified 10/10/20 08:29 menthol [From Icy Hot] Allergy Dyspnea Verified 10/10/20 08:29 methyl salicylate Allergy Dyspnea Verified 10/10/20 08:29 [From Icy Hot] Penicillins Allergy Rash/Hives Verified 10/10/20 08:29 Review of Systems ROS Statement: Those systems with pertinent positive or pertinent negative responses have been documented in the HPI. ROS Other: All systems not noted in ROS Statement are negative. Past Medical History Past Medical History: COPD, GERD/Reflux, Hearing Disorder / Deafness, Musculoskeletal Disorder, Neurologic Disorder, Osteoarthritis (OA) Additional Past Medical History / Comment(s): DDD, hx migraines, M.S., BACK PAIN,. DEAF RT EAR History of Any Multi-Drug Resistant Organisms: None Reported Past Surgical History: Section, Hysterectomy, Orthopedic Surgery, Tubal Ligation Additional Past Surgical History / Comment(s): rt knee surgery- ARTHROSCOPIC , cyst off right eye, RECONSTRUCTIVE SURGERY ON RIGHT KNEE , COLONOSCOPY Past Anesthesia/Blood Transfusion Reactions: No Reported Reaction Past Psychological History: Anxiety, Panic Disorder Smoking Status: Current every day smoker Past Alcohol Use History: Rare Past Drug Use History: None Reported - Past Family History Mother Sister(s) Additional Family Medical History / Comment(s): mother passed age 42 unknown reason Mother Family Medical History: No Reported History Additional Family Medical History / Comment(s): MOTHER PASSED AT AGE 42 General Exam Limitations: no limitations General appearance: alert, in no apparent distress Head exam: Present: atraumatic Eye exam: Present: normal appearance, PERRL, EOMI. Absent: scleral icterus, conjunctival injection ENT exam: Present: normal exam, mucous membranes moist Neck exam: Present: normal inspection, full ROM. Absent: tenderness Respiratory exam: Present: normal lung sounds bilaterally. Absent: respiratory distress, wheezes Cardiovascular Exam: Present: regular rate, normal rhythm, normal heart sounds GI/Abdominal exam: Present: soft, normal bowel sounds. Absent: distended, tenderness Rectal exam: Present: hemorrhoids (external hemorrhoids noted. There are no thrombosed hemorrhoids) Course Vital Signs 10/10/20 08:23 Temperature 98.3 F Pulse Rate 106 H Respiratory 18 Rate Blood Pressure 150/74 O2 Sat by Pulse 97 Oximetry Medical Decision Making - Medical Decision Making Did review patient's colonoscopy from 2 weeks ago. The cecum, ascending, transverse colon appeared normal as well as the descending and sigmoid colons. However GRETCHEN revealed suspicion for anal condyloma. On my exam patient does have external masses noted however no thrombosed hemorrhoids. I do see the slight area of her bleeding was coming from however there is no active bleeding from these. Patient will be treated with Anusol cream as well as a pain medication. I did discuss that she needs to call Dr. Diaz's office back today for follow-up appointment. She will return here for any worsening symptoms. Disposition Clinical Impression: Hemorrhoids, Anal lesion Disposition: HOME SELF-CARE Condition: Good Instructions (If sedation given, give patient instructions): Hemorrhoids (ED) Additional Instructions: Use medication as directed. Call Dr. Terry's office today to follow-up. Return to the emergency room for any worsening symptoms. Prescriptions: Hydrocortisone [Anusol-Hc] 1 applic RECTAL BID 5 Days #30 gm Is patient prescribed a controlled substance at d/c from ED?: No Referrals: Tod Ring MD [Primary Care Provider] - 1-2 days Gino Diaz MD [STAFF PHYSICIAN] - 1-2 days Time of Disposition: 09:06
[2020-10-10 09:42] VITALS: BP 148/88; PULSE 98
== END 2020-10-10 09:42 | disposition home or self-care (01) ==
LOC: EC 08:19
DX: K64.4 Residual hemorrhoidal skin tags (principal); J44.9 Chronic obstructive pulmonary disease, unspecified; K21.9 Gastro-esophageal reflux disease without esophagitis; M19.90 Unspecified osteoarthritis, unspecified site; F41.9 Anxiety disorder, unspecified; F17.200 Nicotine dependence, unspecified, uncomplicated; Z88.0 Allergy status to penicillin; Z88.5 Allergy status to narcotic agent; Z88.6 Allergy status to analgesic agent; Z90.710 Acquired absence of both cervix and uterus; Z98.51 Tubal ligation status
CPT/HCPCS: 99283; 96372; J2270

== ENCOUNTER → 2020-11-10 | Outpatient (CLI) | payer OTHER ==
--- NOTE | 2020-11-10 13:57 | CT ---
EXAMINATION TYPE: CT cervical spine wo con DATE OF EXAM: 11/10/2020 COMPARISON: MRI cervical spine November 10, 2020 HISTORY: C spine pain. CT DLP: 321.5 mGycm. Automated Exposure Control for Dose Reduction was Utilized. TECHNIQUE: CT scan of the cervical spine is obtained without contrast, axial images are obtained, sa gittal and coronal reformatted images are also reviewed. FINDINGS: Similar to recent MRI patient unable to hold still making evaluation suboptimal. C1-C2 pili culation satisfactory on the coronal images. There is dextroconvex scoliosis centered in the upper th oracic spine redemonstrated. Vertebral body heights and disc space heights are fairly well-maintained . Moderate to severe multilevel anterior spurring is present. Posterior disc herniations at C5-C6 and C6-C7 level on MRI are less well-seen on CT. Lung apices show no pneumothorax. IMPRESSION: As above. Suboptimal study. Consider sedated CT or MRI to more accurately evaluate this patient.
--- NOTE | 2020-11-10 16:42 | MR ---
EXAMINATION TYPE: MR cervical spine wo con DATE OF EXAM: 11/10/2020 COMPARISON: CT cervical spine same date HISTORY: Cervical spine pain CONTRAST: None TECHNIQUE: Multiplanar multiecho imaging on a 3.0 [place] magnet is performed through the cervical spin e. FINDINGS: Exam is extremely limited due to motion artifact. Some detail is obscured. The craniovertebral junction appears normal Disc heights appear preserved. Disc desiccation is likely present. Some mild disc bulging may be identified in the sagittal plane C5-6 C6-7. AP spinal canal stenosis is clearly identified. Axial images are essentially nondiagnostic. IMPRESSIONS: 1. Severely limited exam. Some disc bulging is suspected at C5-6 C6-7 without a large degree of steno sis.
== END | disposition home or self-care (01) ==
LOC: RADMRIMAIN 12:26
PROVIDERS: ATTEND Orthopaedic Surgery
DX: M50.223 Other cervical disc displacement at C6-C7 level (principal)
CPT/HCPCS: 72125; 72141

== ENCOUNTER → 2022-05-02 | Outpatient (CLI) | payer OTHER ==
[2022-05-02 11:19] VITALS: BP 112/75; PULSE 103; RESP 18; TEMP 97.7
--- NOTE | 2022-05-02 13:03 | P.PAINPG ---
PQRS Measure Charge Sheet Comment: HISTORY OF PRESENT ILLNESS: 56 yr old female as a referral from [facility] presents today w severe and chronic neck pain secondary to DDD, spondylosis and facet arthropathy without myelopathy for evaluation. Pt states pain level is at 8/10 in intensity, constant, localized in the mid to lower cervical spine, stabbing in character w shooting pain towards the BL shoulders. Pain is provoked by overhead reaching. Pain completed PT yrs 7 yrs ago without relief. Pt states pain is alleviated w heat, medications (Hampton, Tyl), home stretching regimen, repositioning and rest. PMH: COPD, GERD, Hearing Disorder / Deafness, Musculoskeletal Disorder, Neurologic Disorder, OA, MDD/ Anxiety PSH: Colonoscopy w Hemorrhoidectomy (2020), Section, Hysterectomy, R Knee Arthroscopy & Reconstruction, Tubal Ligation SH: Daily tobacco user, Rare ETOH use, No illicit drug use. FH: Mo- Passed age 44 for unknown reason. Sis- No Reported History. All: See list Meds: See list REVIEW OF ORGAN SYSTEMS: CONSTITUTIONAL: No fevers or chills. No recent weight loss. NEUROLOGICAL: + numbness and tingling along the distal extremities. No seizure disorders or headaches. MUSCULOSKELETAL: + pain PSYCHIATRIC: Denies current depression or suicidal thoughts. Physical Examinations : Constitutional : Cooperative , not in acute distress . Neurologic : Cranial nerve II to XII intact. No focal neurological deficits. Psychiatric : alert & oriented x 3. Matching mood & appropriate affect. Judgment & insight intact. Musculoskeletal : Cervical Spine Motor strength in the deltoid and biceps: Normal right side. Normal Left side Motor strength biceps and the wrist extensors: Normal right side . Normal left side Motor strength in the triceps muscle: Normal right side. Normal left side Deep tendon reflexes: Normal at the biceps. Normal at Brachioradialis. Normal at triceps Vertebral body tenderness to deep palpation over C6 Cervical facet loading test: positive bilaterally Spurling test: positive bilaterally Neck distraction test: positive bilaterally Aga sign: positive bilaterally Lumbar spine Motor strength lower extremities ,thigh and legs 5/5 Right side , 5/5 Left side Deep tendon reflexes : Normal Knee Jerk. Normal Ankle Jerk Vertebral body tenderness over Lumbar facet Loading Test: positive Right / positive Left Range of motion of the lumbar spine Flexion 30 degrees, extension 10 degrees Straight Leg Raise test: Left/ Right positive at degree Eugenio test: positive right / positive left. Severe tenderness over the Sacroiliac joint on the Right / Left sides Gaenslen test: positive bilaterally Seated flexion test: positive bilaterally. Sacral spine : Severe tenderness over the Sacroiliac joint: right side / left side Range of motion: Flexion of the lumbar spine <60 degrees Range of motion: Extension of the lumbar spine <20 degrees Gaenslen's Test positive Napoleon's Test positive Eugenio test: positive right side / left side Thigh Thrust Test Sacral Thrust Test Imaging: MRI with and without contrast of the cervical spine from 08/14/21 reviewed Assessment/ Plan : Cervical DDD, cervical spondylosis Recommendation of HEATHER C6-C7 #1. May need a series fo injections for optimal pain relief. Risks, benefits of procedure discussed and patient verbalized understanding. Admits to aspirin or anti- coagulant use or medical history of diabetes. Protocol for discontinuation/ continuation of medications yolanda procedure discussed. All questions answered. I have spent greater than 30 minutes on patient care today. Dr Brandt was available by phone for the evaluation of this patient. The time was used to review the medical records including relevant urine studies and Prescription history (MAPs), review of the available imaging, evaluation and examination of the patient, coordination of care with the medical staff and if applicable referring physicians, as well as creation of the medical record PQRS Narrative: Smoking Status Current every day smoker Home Medications: Ambulatory Orders SUMAtriptan succinate [Imitrex] 50 mg PO BID PRN 03/28/15 Butalb/APAP/Caff 50-325-40Mg [Fioricet 50-325-40] 1 tab PO Q8HR PRN 07/03/15 ALPRAZolam [Xanax] 1 mg PO QID 09/01/19 Baclofen [Lioresal] 20 mg PO TID 09/01/19 Glycopyrrolate/Formoterol Fum [Bevespi Aerosphere Inhaler] 1 puff INHALATION DAILY 09/01/19 Montelukast [Singulair] 10 mg PO 1800 09/01/19 Omeprazole 40 mg PO DAILY 09/01/19 Albuterol Sulfate [Proair Hfa] 1 - 2 puff INHALATION Q6HR PRN 09/21/20 Ascorbic Acid [Vitamin C with Carolyn Hips] 1,000 mg PO DAILY 09/21/20 Cholecalciferol [Vitamin D3 (25 Mcg = 1000 Iu)] 25 mcg PO DAILY 09/21/20 Fluticasone Propionate [Flovent Hfa 220 mcg] 2 puff INHALATION BID 09/21/20 Interferon Beta-1A [Avonex 30 MCG Pen] 30 mcg IM SA 09/21/20 Vitamin B Complex 1 each PO DAILY 09/21/20 Vitamin E (Dl,Tocopheryl Acet) [Vitamin E (400 Iu = 180 mg)] 400 unit PO DAILY 09/21/20 Hydrocortisone [Anusol-Hc] 1 applic RECTAL BID 5 Days #30 gm 10/10/20 HYDROcodone/APAP 7.5-325MG [Hampton 7.5-325] 1 tab PO Q6HR PRN 05/02/22 Controlled Substance Measures - Controlled Substance Measures Is patient prescribed a controlled substance at discharge?: No
== END ==
LOC: PNWHC3 10:32
PROVIDERS: ATTEND Specialist
DX: M48.12 Ankylosing hyperostosis [Forestier], cervical region (principal); M50.20 Other cervical disc displacement, unspecified cervical region; M50.30 Other cervical disc degeneration, unspecified cervical region; M47.812 Spondylosis without myelopathy or radiculopathy, cervical region; F17.200 Nicotine dependence, unspecified, uncomplicated; J44.9 Chronic obstructive pulmonary disease, unspecified; K21.9 Gastro-esophageal reflux disease without esophagitis; M19.90 Unspecified osteoarthritis, unspecified site; F41.9 Anxiety disorder, unspecified; F32.9 Major depressive disorder, single episode, unspecified; Z88.6 Allergy status to analgesic agent; Z88.0 Allergy status to penicillin; Z88.8 Allergy status to other drugs, medicaments and biological substances
CPT/HCPCS: 99211

== ENCOUNTER → 2022-07-17 | Outpatient (CLI) | payer OTHER ==
--- NOTE | 2022-07-17 12:49 | CTL ---
EXAMINATION TYPE: CT Low Dose Lung DATE OF EXAM ORDERED: 07/17/2022 HISTORY: Long-term tobacco use. Lung cancer screening CT DLP: 87.[address] CTDI: 2.4 mGy Automated exposure control for dose reduction was used. SCREENING VISIT: Baseline COMPARISON: None TECHNIQUE: Low dose computed tomography scan was performed through the chest at 1 mm thick sections a nd reconstructed images in multiple planes at 1 mm and [address] DIAGNOSTIC QUALITY: Satisfactory FINDINGS: LUNG NODULES: Present, detailed below: There is 3 mm anterior right upper lung nodule axial image 79. LUNGS: COPD: Severity: Mild Fibrosis: Severity: [id number] biapical pleural/parenchymal scarring. Lymph nodes: None Other findings: None RIGHT PLEURAL SPACE: Effusion: None Calcification: None Thickening: None Pneumothorax: None LEFT PLEURAL SPACE: Effusion: None Calcification: None Thickening: None Pneumothorax: None HEART: Heart Size: Normal Coronary Calcification: None Pericardial Effusion: Tiny OTHER FINDINGS: Upper abdomen: None Bony thorax: None Supraclavicular region: None Other: None IMPRESSION: Mild emphysematous change without greater than [address] LUNG RAD AND [address] CHEST RECOMMENDATION: Lung-Rad 2 Benign Appearance or Behavior: Continue annual sc reening with LDCT in 12 months. S Modifier (other clinically significant findings): None
== END | disposition home or self-care (01) ==
LOC: RADCTMAIN 10:30
PROVIDERS: ATTEND Family Medicine
DX: Z12.2 Encounter for screening for malignant neoplasm of respiratory organs (principal); J43.9 Emphysema, unspecified; R91.8 Other nonspecific abnormal finding of lung field; Z87.891 Personal history of nicotine dependence
CPT/HCPCS: 71271

== ENCOUNTER → 2022-08-26 | Outpatient (CLI) | payer OTHER ==
[2022-08-26 15:57] LABS: Basophils # (A) 0.06 X 10*3/uL (0.00-0.10); Eosinophils # (A) 0.11 X 10*3/uL (0.04-0.35); Eosinophils % (A) 1.8 %; HCT 41.3 % (37.2-46.3); Lymphocytes # (A) 1.94 X 10*3/uL (0.90-5.00); Lymphocytes % (A) 31.6 %; MCH 27.5 pg (27.0-32.0); MCHC 31.5 d/dL (32.0-37.0); MCV 87.5 FL (80.0-97.0); Mean Platelet Volume 10.9 FL (9.5-12.2); Monocytes # (A) 0.31 X 10*3/uL (0.20-1.00); NRBC Per 100 WBC 0 X 10*3/uL (0.00-0.01); Neutrophils % (A) 60.3 %; Platelet Count 237 X 10*3/uL (140-440); RBC 4.72 X 10*6/uL (4.10-5.20); RDW 14.3 % (11.5-14.5); WBC 6.14 X 10*3/uL (4.50-10.00)
[2022-08-26 16:09] LABS: BUN/Creat Ratio 17.43 Ratio (12.00-20.00); Blood Urea Nitrogen 12.2 mg/dL (9.0-27.0); Calcium 9.9 mg/dL (8.7-10.3); Carbon Dioxide 21.6 mmol/L (21.6-31.8); Chloride 110 mmol/L (96-109); Glucose 87 mg/dL (70-110); Sodium 144 mmol/L (135-145)
[2022-08-26 20:09] LABS: INR <0.93 sec (0.93-1.11); Prothrombin Time 10.3 sec (9.9-11.9)
== END | disposition home or self-care (01) ==
LOC: LABWHC1 10:00
PROVIDERS: ATTEND Orthopaedic Surgery
DX: Z01.818 Encounter for other preprocedural examination (principal); M48.02 Spinal stenosis, cervical region; M47.812 Spondylosis without myelopathy or radiculopathy, cervical region; J44.9 Chronic obstructive pulmonary disease, unspecified; J40 Bronchitis, not specified as acute or chronic; Z22.322 Carrier or suspected carrier of Methicillin resistant Staphylococcus aureus; R00.1 Bradycardia, unspecified
CPT/HCPCS: 36415; 80048; 85025; 85610; 87070; 93005

== ENCOUNTER 2022-09-02 08:04 | Observation (INO) | payer OTHER ==
--- NOTE | 2022-09-02 06:52 | P.HPOR ---
History of Present Illness H&P Date: 08/26/22 .D:Date: 08/26/22 : 11:39am .T:Title: [facility] Date of :69 [id number]: NKDA Age: 56 year Height: 5'6" Weight: 161 lbs BMI: 25.99 kg/m2 Occupation: Disabled VAS: 8 CHIEF COMPLAINT: Preoperative evaluation for C4-7 ACDF DOI: Chronic DOS: n/a Duration of current treatment regiment:> 1 year HISTORY: Xrays No new x-rays taken in office today. Trauma or injury No Work-Related No Pain description Aching, sharp, increasing Location Posterior Patient notes that their pain radiates to bilateral upper extremities Activity Modification Yes Hand Dominance Right TREATMENTS COMPLETED: 6 weeks of PT completed? Yes With no relief Physician directed home exercise completed? Yes, without relief of their symptoms Medications Yes; List: Braddock, Imitrex, Baclofen, & Tylenol Alternative interventions Chiropractic:yes Massage therapy:yes R.I.C.E:yes Brace:no Injections No RFA:No SUBJECTIVE: Ms. Agosto returns to the office today for a preoperative appointment preceeding their previously scheduled C4-7 ACDF. The patient notes a constant ache-like and intermittent sharp, shooting pain throughout the neck that radiates down into the bilateral upper extremities. The patient notes that her upper extremity pain is associated with numbness, tingling, and weakness. The patient states that her upper extremity radicular symptoms have worsened over the last 2 to 3 weeks. The patient notes that her symptoms have started to very significantly affect her overall quality of life. The patient states her symptoms are exacerbated by all activity, which makes it very difficult for her to complete her activities of daily living. The patient is having severe sleep disturbances due to her ongoing pain and associated symptoms. She has trialed conservative treatment measures in the form of physical therapy, at home stretches/exercises, animal care specialist, massage therapy, at home heat/ice therapies, activity modification, and medication management all with no significant or sustained relief. The patient is currently taking Tylenol, Baclofen, Imitrex, and Braddock, with very minimal relief of her symptoms. Otherwise the patient denies any f/c/sob/cp, no bladder or bowel retention/incontinence, no perineal numbness/tingling, and ambulates independently today. HPI: Ms. Agosto returns to the office on 07/05/2022 for a re-check on her cervical pain. Patient continues to experience a constant sharp, aching cervical pain that has been ongoing for the last 6 to 7 years with no known injury or trauma to indicate an exact onset of their symptoms. In addition to their cervical pain, they do report that it radiates down into the bilateral upper extremities, associated withnumbness and tingling. Overall the patient has seen a progressive increase in symptoms since their onset. Ms. Agosto symptoms are exacerbated with rotation of her head or increased activities , and due to this she note that it is increasingly difficult for her to complete many of her daily tasks. The patient is having severe sleep disturbances as well due to their ongoing pain and associated symptoms. She also states she has had an increase in her migraines over the past few years. Regarding treatments, the patient has previously trialed the above listed modalities. Patient denies trialing any other modalities at this time. The patient has an upcoming appointment with pain management to trial epidural steroid injection on 07/17/2022. The patient stated that physical therapy is making her pain worse. For their symptoms, the patient has been taking Braddock, Imitrex, and Toradol. The patient states that she feels relief after taking Toradol. Patient states she has trialed Gabapentin, Lyrica, Motrin, Tylenol, and steroids with no relief and/or discontinue due to side effects. Otherwise the patient denies any f/c/sob/cp, no bladder or bowel retention/incontinence, no perineal numbness/tingling, and ambulates independently today. Ms. Agosto returns to the office on 04/08/2022 for a recheck of their cervical pain. Patient reports a constant sharp aching cervical pain ongoing for 6-7 years with no known injury or trauma to indicate an exact onset of their symptoms. In addition to their cervical pain, they do report that it radiates into the bilateral upper extremities, associated with numbness and tingling. Overall the patient has seen a progressive increase in symptoms since their onset. Ms. Agosto symptoms are exacerbated with rotation of her head ar increased activities, due to this they notes that it is increasingly difficult for Ms. Agosto to complete many of their daily tasks. Patient is having severe sleep disturbances as well due to their ongoing pain and associated symptoms. She also states she has had an increase in her migraines over the past few years. Regarding treatments, the patient has previously trialed the above listed modalities. Patient denies trialing any other modalities at this time. For their symptoms, the patient has been taking Braddock, Baclofen, Fioricet, and Imitrex. Patient states she has trialed Gabapentin, Lyrica, Motrin, Tylenol, and steroids with no relief and/or discontinue due to side effects. Otherwise the patient denies any f/c/sob/cp, no bladder or bowel retention/incontinence, no perineal numbness/tingling, and ambulates independently. Ms. Agosto was last seen on 12/27/20 to review the results of her CT and MRI of the cervical spine obtained after the time of the last appointment. During the CT scans she notes that she did have spasms about her back that were very painful and "almost" prevented her from completing the exam. She notes that she has been unable to lay on her back for several years. Since the time of the last appointment the patient notes that she has not improved. She notes that she has not completed any PT or seen the narcotics detective as directed at the time of the last appointment. Overall her symptomology has not changed. She presents to the office without the use of any ambulatory aides. Ms. Agosto was last seen on 10/11/2020 regarding her cervical spine. To review, the patient reports having a history of MS for 10 years but this has been managed by her PCP. Along with this, the patient states that she has had neck pain for 3-4 years with no known trauma or injury to indicate an exact onset of her symptoms. The pain is quite severe and she is unable to perform many of her daily activities due to this. With her neck pain she notes that she has pain radiating down into her arms bilaterally with associated numbness and tingling in the distal extremities. Patient also reports a history of chronic headaches, which has been ongoing since the onset of her neck pain. Patient has tried taking Tylenol for pain management with no improvements to his symptoms. Of note, the patient is unable to complete an MRI and cannot have injections because they make her ill. Patient also denies having any previous surgery on her cervical spine. She is otherwise doing well. The patients' past social, medical, family, surgical history, as well as review of systems, have been reviewed. Please refer to the Neurosurgery History and Physical form that has been scanned in to our electronic medical record system. 14 points review of systems completed and as stated in HPI, all other systems reviewed are negative. Social History:Reviewed, see appropriate section of the chart for details. P3 Family History:Reviewed, see appropriate section of the chart for details. P2 Past Medical History:Reviewed, see appropriate section of the chart for details. [id number] Medications: Rx: acetaminophen 500 mg tablet Ref: 0 Rx: Avonex 30 mcg/0.5 mL intramuscular pen injector Ref: 0 Rx: baclofen 20 mg tablet Ref: 0 Rx: budesonide Ref: 0 Rx: butalbital (bulk) Ref: 0 Rx: Flovent HFA Ref: 0 Rx: Imitrex Ref: 0 Rx: omeprazole Ref: 0 Rx: ProAir HFA Ref: 0 Rx: Singulair Ref: 0 Rx: Xanax 1 mg tablet Ref: 0 Rx: ketorolac 10 mg tablet Ref: 0 PHYSICALEXAMINATION: General:Awake, alert, appropriate for age, in no acute distress. HEENT:No unusual neck masses around region of lateral neck triangle, thyroid, supraclavicular groove Heart:Regular rate and rhythm, normal S1, S2 and no murmur/gallop. Lungs:Clear to auscultation bilaterally with no use of accessory muscles. Extremities: Skin warm and dry without acute lesions, coloration, temperature, skin intact, no tenderness or erythema Integument: Hairy patches: ABSENT Dorsal skin dimples:ABSENT Cafe au lait spots:ABSENT Surgical incisions:n/a Palpation: Please see Pain drawing on Intake sheet for further detail. Midline spinal tenderness: No E6 Cervical Tenderness: YES E6 Paralumbar tenderness: YES E6 Parathoracic tenderness: No E6 Buttocks tenderness: No E6 POSTURAL and MUSCULO-SKELETAL EVALUATION: Coronal Balance: NEUTRAL Recumbent testing: Patient is able to lay flat on back Sagittal Balance: NEUTRAL Shoulder Profile: LEVEL Pelvic Girdle: LEVEL Neck ROM: RESTRICTED Lumbar ROM: UNRESTRICTED Shoulder ROM: Symmetrical Hip ROM: Symmetrical Knee ROM: Symmetrical Hands: Normal appearance, symmetrical Feet: Normal appearance, Symmetrical VASCULAR STATUS : LEFT RIGHT Wrist Pulses INTACT INTACT Pedal Pulses (Dors. pedis & post.tibialis) INTACT INTACT Color NORMAL NORMAL Edema Absent Absent NEUROLOGIC EXAMINATION: Mental Status:Awake and alert, fully oriented, with normal attention, concentration and memory, and fluent, appropriate speech. Cranial Nerves: I: Olfactory not tested. II: Visual acuity normal, no visual field deficit noted with confrontation. III,IV: Normal pupillary reflexes & intact extraocular movements without nystagmus. V,: Intact symmetrical facial sensation. VII: Intact symmetrical facial motor movement VIII: Hearing intact. IX,X: Intact gag, swallow, & normal voice. XI: Sternocleidomastoid, trapezius function intact. XII: Tongue midline with normal movements. L'hermitte's Sign: Negative / absent Spurling'Sign: Absent bilaterally. Cubital percussion test: Absent bilaterally. Mckeon-Tinel sign - Carpal region: Absent bilaterally. Straight Leg Raising: Absent bilaterally. Crossed straight leg raise: negative O8 MOTOR EXAM (0-5/5, N/T Muscle appearance: Symmetrical, without signs of atrophy or dystrophy UPPER EXTREMITY RIGHT LEFT Shoulder Abduction 4/5 4/5 Biceps 4/5 4/5 Triceps 4/5 4/5 Wrist Extension 4/5 4/5 Hand Intrinsic 4+/5 4+/5 Collision Repairer 3+/5 3+/5 Hand and finger dexterity intact bilaterally?yes Disdiadochokinesis examination negative bilaterally? yes LOWER EXTREMITY RIGHT LEFT Hip Flexion 5/5 5/5 Knee Extension 5/5 5/5 Knee Flexion 5/5 5/5 Dorsiflexion 5/5 5/5 Plantarflexion 5/5 5/5 EHL 5/5 5/5 FHL 5/5 5/5 Toe heel walk / heel-toe walk intact while maintaining satisfactory balance? yes Squatting/straightening w/o assistance to a min of 60 degree knee flexion? yes Single leg stance:intact Trendelenburg sign negative bilaterally REFLEXES(0-4/2, NT)Upper Extremity Lower Extremity Right 3 2 Left 2 2 Pathological Reflexes RIGHT LEFT Mckeon's PRESENT Absent Clonus Absent Absent Babinski Absent Absent Sensory system (0-4, N/T) Test type RU MATTHEW RL LL Joint-Position 2 2 2 2 Vibration 2 2 2 2 Pain & LT sense 2 2 2 2 Dermatomal Deficit: C4-6 None None None Gait and Functional Evaluation: Ambulatory aids:Independent Romberg's test:Intact bilaterally Steady Gait RADIOGRAPHS: XRay Cervical multiview (Lateral, Flexion, Extension, AP, Oblique) 6 views taken at [facility] on 04/08/22: Multilevel spondylitic and degenerative changes with lordosis. Diffuse idiopathic skeletal hyperostosis is present. C5C6, C6-C7 right foraminal stenosis. No acute osseous abnormalities. [facility]: Motion artifact confounds picture however; Spondylosis noted C3-7 with the worst from C4-7 with disc collapse and disc herniation from C4-7 that causes moderate to severe central and b/l foraminal stenosis. There is Grade I listhesis of C5-6 and C6-7. There is myelomalacia noted at C4-5, C5-6 and C6-7. SAC at these levels is measured around 7.7, 9.4 and 6.2 mm respectively showing absolute stenosis Anterior osteophytes noted C2-3, C3-4 No fracture, C0-1 and C1-2 are stable. No lesions. A SSESSMENT: 1. 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 Upper extremity radiculopathy 3. Upper extremity weakness PLAN: Based on my findings I suggest the following course of action: -I discussed treatment options with the patient, including operative and non- operative options, and they have elected to proceed with the following surgical procedure: C4-7 anterior cervical decompression and fusion The indications, risks, benefits, and alternatives to surgery were discussed wi th the patient and family at length. Specifically (but not limited to) the risks of infection, stiffness, recurrence of symptoms, need for revision surgery, local numbness, neurovascular injury, and blood clots were discussed.The patient's questions were answered. - Ambulate daily - Take medications as directed - Ice and rest for pain and swelling control. Spine Surgery Risk Review Ms. Agosto is presenting for evaluation of neck and bilateral upper extremity pain, bilateral upper extremity numbness, tingling, and weakness. It was my pleasure to have seen and examined Ms. Agosto. In our visit today we have had a chance to go over subjective complaints, physical examination findings and treatments including the natural course history without intervention and various interventional options. The patients imaging demonstrates: XRay Cervical multiview (Lateral, Flexion, Extension, AP, Oblique) 6 views taken at [facility] on 04/08/22: Multilevel spondylitic and degenerative changes with lordosis. Diffuse idiopathic skeletal hyperostosis is present. C5C6, C6-C7 right foraminal stenosis. No acute osseous abnormalities. [facility] CervicalSpine: Motion artifact confounds picture however; Spondylosis noted C3-7 with the worst from C4-7 with disc collapse and disc herniation from C4-7 that causes moderate to severe central and b/l foraminal stenosis. There is Grade I listhesis of C5-6 and C6-7. There is myelomalacia noted at C4-5, C5-6 and C6-7. SAC at these levels is measured around 7.7, 9.4 and 6.2 mm respectively showing absolute stenosis Anterior osteophytes noted C2-3, C3-4 No fracture, C0-1 and C1-2 are stable. No lesions. On physical exam, Ms. Agosto demonstrates: a constant sharp, aching cervical pain that has been ongoing for the last 6 to 7 years with no known injury or trauma to indicate an exact onset of their symptoms. In addition to their cervical pain, they do report that it radiates down into the bilateral upper extremities, associated withnumbness and tingling. Overall the patient has seen a progressive increase in symptoms since their onset. Ms. Agosto symptoms are exacerbated with rotation of her head or increased activities , and due to this she note that it is increasingly difficult for her to complete many of her daily tasks. The patient is having severe sleep disturbances as well due to their ongoing pain and associated symptoms. She also states she has had an increase in her migraines over the past few years. I have explained to the patient that as their condition progresses it will cause further neurological deficits and eventual paralysis. Based on the patients imaging, physical exam, and the rapid progression and disabling nature of their symptoms, at this time I recommend surgery in the form of a: C4-7 ACDF. I discussed the risk and benefits of this procedure at length with Ms. Agosto. The patient agreed to considered pursuing the procedure above mentioned .Prior to surgery, she should follow up with her PCP for clearance. Questions were invited and answered, and the patient wishes to proceed as outlined below. Currently, I am recommendin.C4-7 ACDF 2.Follow up with PCP for surgical clearance 3.Review of surgical risks and benefits as well as an educational packet on the proposed surgical procedure. Risks: All surgical procedures come with inherent risks, including those related to positioning, anesthesia, intraoperative findings, and postoperative complications. It is important to understand that surgery does not come with any guarantee of a successful outcome as complications and adverse events are always possible. The patient was given a handout in office today discussing the surgical procedure and risks associated with the intervention, both of which were discussed with the patient. These risks include but are not limited to the following: * Experiencing same, different or even worse symptoms in back, neck, arms, or legs compared to before surgery. Requiring further surgery or other forms of treatment presently or at some time in the future at same or other levels of the intended spine surgery. On an extreme but fortunately relatively rare basis severe complication such as blindness, stroke, heart attack, temporary and/or permanent nerve injury, paralysis, coma, or may occur, sometimes without known explanation. Surgical complications may include but are not limited to risk of infection, fluid accumulation in the surgical dissection site, including a seroma or hematoma, that requires additional surgery, wound drainage, bleeding, new numbness or weakness, vision changes/loss, spinal fluid leakage, non-healing and/or infected incision, headaches, difficulty or inability to swallow, hoarseness, hemopneumothorax, pneumothorax, impotence, retrograde ejaculation, vaginal dryness; injury to nerves, spinal cord, blood vessels, lymphatics or other vital organs (i.e., bowel injury, injury to the great vessels); heterotopic bone formation; complications related to the hardware such as screws, rods, cages including misplaced hardware, device failure, instrumentation at the wrong spine level, hardware fracture/breakage, or hardwa re loosening; vertebral failure of the spinal column above or below the newly placed hardware; retained surgical instrumentations or devices and the need for further surgery. * Medical risks of the planned spine surgery include but are not limited to generalized Infections to the whole body or local areas outside of the surgical site (sepsis), heart attack, bleeding, anaphylaxis, meningitis, seizure, epilepsy, hearing loss, burn caballero, laceration of the head or other areas of the body, bruising, hypersensitivity of the skin, bladder over distension; allergic reaction; shoulder injury related to positioning; fat, blood and air clots to other areas of the body like heart, lungs, brain; failure of internal organs such as lungs, kidneys, liver and excessive bleeding. If blood transfusions are necessary, note that transfusions may cause intolerance reactions such as anaphylaxis or other complex reactions. Despite best efforts, the results of spine surgery might not heal in terms of bone, soft tissues such as skin, fascia, ligaments, and joints. Additionally, in order to achieve best possible results, spine surgery may be carried out beyond the initially planned levels and involve decompression, fusion including insertion of hardware at levels other than the original intended area of surgical interest change some portions of the procedure in order to ensure the best possible outcomes. With spine surgery and spinal fusion, there are different off label uses of instrumentation (devices, implants and hardware) as well as biological substances (bone morphogenic proteins, demineralized bone matrix) as well as using extra bone from allograft sources (i.e. cadaver bone) or autograft (iliac crest bone, ribs, or the spine itself). The patient has been given information about these practices and their inherent risks and benefits. [facility] is an educational center that serves as a training facility for neurosurgical and orthopedic EC TEACHER and Nursing students. Physician assistants are medically trained surgical providers who function in the outpatient, inpatient, and operating room setting under the direct supervision of the attending surgeon. [facility] has multiple operating rooms with single and overlapping rooms running daily. They currently function under the required guidelines as produced by the [facility] with regards to the overlapping rooms and will continue to comply with changes to this policy as they occur. The requirements include and are complied with as follows: (1) the critical portions of the overlapping rooms will not occur at the same time, (2) the attending physician will be physically present during the critical portions of the procedure and immediately available during the entire case, and (3) a back-up attending is designated should the primary attending not be immediately available. The patient has had a chance to review all the listed information, has been given print outs detailing this information, and has had all his/her questions answered to their satisfaction. It was my pleasure to have seen and examined Ms. Agosto. In our visit today we have had a chance to go over my understanding of our patient's current condition, the natural course history without intervention and various interventional options. Questions were invited and answered, and the patient wishes to proceed as outlined above. I have seen and examined the patient for 25 minutes and we have spent more than 50% of the time in repeat and detailed counseling about the patient's condition, its natural course history with out and as much as can be predicted with surgery and re-review of various surgical treatment options. In conclusion, Ms. Agosto and requested we proceed with the above suggested surgery and are willing to accept risks and limitations of the suggested surgery as nature of the disease process and our best attempts at treatment for the condition. Thank you again for allowing us to be part of your patient's care. Please don't hesitate to contact me if you have any further questions. Follow-up: Post procedure Patient Education: (Informational booklet, instructions, etc) given at today's appointment: Yes .ED:Patient Education: Y Medications Reviewed: YES In our visit today Ms. Agosto and I have had a chance to go over my understanding of the patient's current condition, the natural course history without intervention and various interventional options. Questions were invited and answered, and the patient wishes to proceed as outlined above. I will be sure to keep you updated afterMs. Agosto returns here for further follow-up. Thank you again for your referral. Please do not hesitate to contact me if you have any further questions. Signed and authenticated by: Sandeep Acuña [facility] [address] [place] [id number] This message is confidential, intended only for the named recipient(s) and may contain information that is privileged or exempt from disclosure under applicable law. If you are not the intended recipient(s), you are notified that the dissemination, distribution or copying of this information is strictly prohibited. If you received this message in error, please notify the sender then delete this message. Patient verbalizes understanding of the information discussed. The above note was initiated by Trish Sidhu, physician recording teaching assistant for Dr. Sandeep Garcia. This note has been reviewed by Dr. Garcia, who has made his personal changes and impressions for this document. CC: Tod Ring M.D. Past Medical History Past Medical History: COPD, GERD/Reflux, Hearing Disorder / Deafness, Hypertension, Musculoskeletal Disorder, Neurologic Disorder, Osteoarthritis (OA) Additional Past Medical History / Comment(s): DDD, hx migraines, M.S., BACK PAIN,. DEAF RT EAR lft ear some hearing loss History of Any Multi-Drug Resistant Organisms: None Reported Past Surgical History: Section, Hysterectomy, Orthopedic Surgery, Tubal Ligation Additional Past Surgical History / Comment(s): rt knee surgery- ARTHROSCOPIC , cyst off right eye, RECONSTRUCTIVE SURGERY ON RIGHT KNEE , COLONOSCOPY with removal of polyps, Past Anesthesia/Blood Transfusion Reactions: No Reported Reaction Smoking Status: Current every day smoker, Vaper - Past Family History Mother Family Medical History: No Reported History Additional Family Medical History / Comment(s): MOTHER PASSED AT AGE 42 Medications and Allergies Home Medications Medication Instructions Recorded Confirmed Type SUMAtriptan succinate [Imitrex] 50 mg PO BID PRN 03/28/15 08/27/22 History Butalb/APAP/Caff 50-325-40Mg 1 tab PO Q8HR PRN 07/03/15 08/27/22 History [Fioricet 50-325-40] ALPRAZolam [Xanax] 1 mg PO QID 09/01/19 08/27/22 History Baclofen [Lioresal] 20 mg PO TID 09/01/19 08/27/22 History Montelukast [Singulair] 10 mg PO 1800 09/01/19 08/27/22 History Omeprazole 40 mg PO DAILY 09/01/19 08/27/22 History Albuterol Sulfate [Proair Hfa] 1 - 2 puff INHALATION Q6HR PRN 09/21/20 08/27/22 History Ascorbic Acid [Vitamin C with Carolyn 1,000 mg PO DAILY 09/21/20 08/27/22 History Hips] Cholecalciferol [Vitamin D3 (25 25 mcg PO DAILY 09/21/20 08/27/22 History Mcg = 1000 Iu)] Fluticasone Propionate [Flovent 2 puff INHALATION BID 09/21/20 08/27/22 History Hfa 220 mcg] Interferon Beta-1A [Avonex 30 MCG 30 mcg IM SA 09/21/20 08/27/22 History Pen] Vitamin B Complex 1 each PO DAILY 09/21/20 08/27/22 History Vitamin E (Dl,Tocopheryl Acet) 400 unit PO DAILY 09/21/20 08/27/22 History [Vitamin E (400 Iu = 180 mg)] HYDROcodone/APAP 10-325MG [Braddock 1 tab PO Q8H PRN 08/27/22 08/27/22 History 10-325] Loratadine 10 mg PO DAILY 08/27/22 08/27/22 History Losartan [Cozaar] 100 mg PO DAILY 08/27/22 08/27/22 History Allergies Allergy/AdvReac Type Severity Reaction Status Date / Time aspirin Allergy Itching Verified 08/27/22 10:02 ibuprofen Allergy Itching Verified 08/27/22 10:02 menthol [From Icy Hot] Allergy Dyspnea Verified 08/27/22 10:02 methyl salicylate Allergy Dyspnea Verified 08/27/22 10:02 [From Icy Hot] Penicillins Allergy Rash/Hives Verified 08/27/22 10:02 prednisone AdvReac Severe Unknown Verified 08/27/22 10:02 Physical Examination Osteopathic Statement: *. No significant issues noted on an osteopathic structural exam other than those noted in the History and Physical/Consult.
[~2022-09-02 08:04] MED LIST changes: +ACETAMINOPHEN TAB 500 MG TAB PO PRN; +GABAPENTIN 300 MG CAP PO PRN; -LACTATED RINGERS 1,000 ML IV SCH; -LIDOCAINE 1% (10MG/ML) FOR IV START INTRADERMA PRN; +ONDANSETRON 4 MG/2 ML VIAL IVP ONE; +ONDANSETRON 4 MG/2 ML VIAL IVP PRN; +TRANEXAMIC 1,000 MG/100ML-NACL 1,000 MG in SALINE 1 100ML.BAG IVPB PRN
[2022-09-02] MEDS: LACTATED RINGERS 1,000 ML IV SCH (08:38)
[2022-09-02] MEDS ORDERED: GLYCOPYRROLATE 0.2 MG/ML 2 ML VIAL ONE (08:48)
[2022-09-02] MEDS ORDERED: fentaNYL (PF) 50 MCG/ML 2 ML AMP ONE (08:48)
[2022-09-02] MEDS ORDERED: LIDOCAINE 2% INJ 20 MG/ML (2 ML VIAL) ONE (08:48)
[2022-09-02] MEDS ORDERED: PROPOFOL 10 MG/ML 20 ML VIAL IV ONE (08:48)
[2022-09-02] MEDS ORDERED: MIDAZOLAM 2 MG/2 ML VIAL ONE (08:48)
[2022-09-02] MEDS ORDERED: SUCCINYLCHOLINE CHLORIDE 200 MG/10 ML VIAL IV ONE (08:48)
[2022-09-02] MEDS ORDERED: ROCURONIUM 10 MG/ML (5 ML VIAL) IV ONE (08:48)
[2022-09-02] MEDS ORDERED: KETAMINE 10 MG/ML 20 ML VIAL ONE (08:48)
[2022-09-02] MEDS ORDERED: NEOSTIGMINE 1 MG/ML 10 ML VIAL ONE (08:48)
[2022-09-02] MEDS ORDERED: TRANEXAMIC 1,000 MG/100ML-NACL PREMIX BAG ONE (08:48)
[2022-09-02] MEDS ORDERED: THROMBIN (BOVINE) 5,000 UNIT VIAL TOPICAL ONE (09:45)
[2022-09-02] MEDS ORDERED: GELATIN SPONGE,ABSORB (LARGE) 1 EACH SPONGE TOPICAL ONE (09:45)
--- NOTE | 2022-09-02 11:16 | FL ---
Intraoperative/procedural fluoroscopic services were provided. Total fluoroscopy time is 35.6 seconds with a total of 5 submitted images to PACS. Please see the operative/procedural note for further det ails. DAP: 0.5027 mGym2
[2022-09-02] MEDS ORDERED: SENNOSIDES-DOCUSATE SODIUM 1 EACH TAB PO PRN (11:18)
[2022-09-02] MEDS ORDERED: HYDROmorphone 0.5 MG/0.5 ML SYRINGE IVP PRN (11:18)
[2022-09-02] MEDS ORDERED: MAGNESIUM HYDROXIDE 2,400 MG/30 ML CUP PO PRN (11:18)
[2022-09-02] MEDS ORDERED: HYDROcodone/APAP 5-325MG 1 EACH TAB PO PRN (11:18)
[2022-09-02] MEDS ORDERED: MAG HYDROX/AL HYDROX/SIMETH 30 ML CUP PO PRN (11:18)
[2022-09-02] MEDS: fentaNYL (PF) 50 MCG/ML 2 ML AMP IV PRN ×2 (11:53→11:59)
--- NOTE | 2022-09-02 14:32 | CT ---
EXAMINATION TYPE: CT cervical spine wo con CT DLP: 326.7 mGycm, Automated exposure control for dose reduction was used. DATE OF EXAM: 09/02/2022 2:28 PM COMPARISON: 11/10/2020 . CLINICAL INDICATION:Female, 57 years old with history of s/p C5-C7 ACDF; PHH, CERVICAL SPINE STENOSIS , SPONDYLOSIS, POST OP C5-C7 ACDF TECHNIQUE: Axial CT images from the skull base to the inferior aspect of T2 we obtained without intra venous contrast. Coronal and sagittal reformatted images were also reviewed. Contrast used: mL of , (if blank None) Oral contrast used: (if blank None) FINDINGS: Postsurgical changes with hardware spanning from C5-C6 and C7 with discectomy at C5-6 and C6-C7. Hard solis appears intact. No evidence of fracture. There is postsurgical changes to the anterior neck soft tissues with subcutaneous gas. IMPRESSION: Post surgical changes the neck with hardware in place in appropriate position. No evidence for immedi ate postop complication.
[2022-09-02] MEDS: ACETAMINOPHEN TAB 325 MG TAB PO SCH ×3 (14:37→23:38)
[2022-09-02] MEDS: HYDROmorphone 1 MG/ML 1 ML SYRINGE IVP PRN ×2 (14:38→23:41)
[2022-09-02] MEDS: GABAPENTIN 300 MG CAP PO SCH ×3 (16:24→21:50)
[2022-09-02] MEDS ORDERED: BUTALB/APAP/CAFF 50-325-40MG TAB PO PRN (17:29)
[2022-09-02] MEDS: MONTELUKAST 10 MG TAB PO SCH (18:34)
[2022-09-02] MEDS: ALPRAZolam 1 MG TAB PO SCH ×2 (18:34→21:42)
[2022-09-02] MEDS: CYCLOBENZAPRINE 5 MG TAB PO PRN (18:37)
[2022-09-02] MEDS ORDERED: PANTOPRAZOLE 40 MG TABLET PO STA (18:40)
[2022-09-02] MEDS: IPRATROPIUM-ALBUTEROL 3 ML NEB INHALATION SCH (20:08)
[2022-09-02] MEDS: BUDESONIDE 0.5 MG/2 ML NEBU INHALATION SCH (20:08)
[2022-09-03] MEDS: ACETAMINOPHEN TAB 325 MG TAB PO SCH ×3 (06:26→17:13)
[2022-09-03] MEDS: PANTOPRAZOLE 40 MG TABLET PO SCH (06:27)
[2022-09-03] MEDS: LACTATED RINGERS 1,000 ML IV SCH (07:50)
[2022-09-03] MEDS: CYCLOBENZAPRINE 5 MG TAB PO PRN (08:01)
[2022-09-03] MEDS: HYDROcodone/APAP 10-325MG 1 EACH TAB PO PRN ×3 (08:01→22:11)
[2022-09-03] MEDS: GABAPENTIN 300 MG CAP PO SCH (08:05)
[2022-09-03] MEDS: LOSARTAN 50 MG TAB PO SCH (08:15)
[2022-09-03] MEDS: LORATADINE 10 MG TAB PO SCH (08:15)
[2022-09-03] MEDS: FUROSEMIDE 20 MG TAB PO SCH (08:16)
[2022-09-03] MEDS: ALPRAZolam 1 MG TAB PO SCH ×4 (08:16→22:31)
--- NOTE | 2022-09-03 08:41 | P.PN ---
Subjective Progress Note Date: 09/03/22 Principal diagnosis: 1. 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 Upper extremity radiculopathy 3. Upper extremity weakness Patient seen and examined this morning. She is resting comfortably in bed. Hard cervical collar is in place. Surgical dressing is CDI, RAVEN drain present 40ml sanguineous output overnight. Will reassess drain output later today and may remove. Patient reports anterior cervical pain around incision. She states medication is managing her pain at this time. Encouraged patient to utilize ice and cold items for intake to help with sore throat. Patient states she has been up to restroom with assistance and tolerated activity well. Informed patient that PT would be in this morning to work with her. Patient reports that she feels improvement in the bilateral upper extremity radiculopathy since proce dure. Patient does plan to go home at discharge. Objective - Vital Signs Vital signs: Vital Signs Temp 98.3 F 09/03/22 02:00 Pulse 68 09/03/22 02:00 Resp 16 09/03/22 02:00 BP 140/70 09/03/22 02:00 Pulse Ox 96 09/03/22 02:00 FiO2 Intake & Output 09/02/22 09/03/22 09/03/22 18:59 06:59 18:59 Intake Total 850 Output Total 50 40 Balance 800 -40 Weight 73 kg Intake: IV 850 Output: Drainage 40 Neck 40 Urine 0 Estimated Blood Loss 50 Other: Voiding Method Bedpan # Voids 1 - Exam Physical Examination General: The patient is awake and alert, in no acute distress Skin: Skin is warm and dry with no obvious rashes or lesions. Surgical incision to the anterior cervical spine, dressing is clean dry and intact with RAVEN drain present 40 mL output overnight Eye: Pupils are equal, round and reactive to light, extra-ocular movements are intact; there is normal conjunctiva bilaterally. Neck: The neck is supple, there is no tenderness and ROM intact. Cardiovascular: There is a regular rate and rhythm. No murmur, rub or gallop is appreciated. Respiratory: Lungs are clear to auscultation, respirations are non-labored, breath sounds are equal. Gastrointestinal: Soft, non-distended, non-tender abdomen. Back: There is no tenderness to palpation in the midline, paralumbar, parathoracic or buttocks region. There is no obvious deformity . Musculoskeletal: ROM limited secondary to pain and stiffness from surgical procedure. Muscle strength in all major muscle groups of bilateral upper extremities 3+/5, bilateral lower extremities 5/5. Neurological: CN 2-12 intact. There are no obvious motor or sensory deficits. Movement and coordination equal and intact. Sensory exam to light touch intact C5-T1 and intact from L2-S1. Reflexes 2/4 in bilateral upper and lower extremities. Negative Hoffmans, babinski, and clonus signs. Psychiatric: Cooperative, appropriate mood & affect, normal judgment. Assessment and Plan Assessment: Postop day 1: C5-C7 ACDF 1. 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 Upper extremity radiculopathy 3. Upper extremity weakness Plan: -Appreciate dairy nutrition consultant and team management. -Activity: Ambulate QID, OOB all meals, up and about, limit lifting bending twisting to less than 5 lbs. Use walker or cane if needed for stability. -Daily PT/OT, increase ambulation strength and balance. -Hard cervical collar at all times, may remove for showers. -Pain control: Adequate at this time -Meds: reviewed -GI ppx: senna, Miralax -DVT PPX: OK to restart Heparin tonight -Hygiene: Shower today. Maintain dressing clean and dry. Meticulous cleaning after BMs away from the incision site -Drains: Maintain for now. DC later today pending out put and PT -Encourage IS 10x/hr -Dispo: Anticipate discharge home tomorrow with homecare *I reviewed and discussed this case with my attending Dr. Garcia, whom has reviewed this chart and films and is in agreement with assessment and plan of care as outlined above. I have personally seen and examined the patient, performed the documentation and the assessment and plan as written. Number of minutes spent on the visit: 20m.
[2022-09-03] MEDS: BUDESONIDE 0.5 MG/2 ML NEBU INHALATION SCH ×2 (09:11→20:57)
[2022-09-03] MEDS: IPRATROPIUM-ALBUTEROL 3 ML NEB INHALATION SCH ×4 (09:12→20:57)
[2022-09-03 11:12] LABS: Basophils # (A) 0.04 X 10*3/uL (0.00-0.10); Basophils % (A) 0.6 %; Eosinophils # (A) 0.11 X 10*3/uL (0.04-0.35); Eosinophils % (A) 1.6 %; HCT 37.9 % (37.2-46.3); HGB 12.2 d/dL (12.0-15.0); Lymphocytes # (A) 1.79 X 10*3/uL (0.90-5.00); Lymphocytes % (A) 25.4 %; MCH 27.9 pg (27.0-32.0); MCHC 32.2 d/dL (32.0-37.0); MCV 86.7 FL (80.0-97.0); Mean Platelet Volume 10.3 FL (9.5-12.2); Monocytes # (A) 0.44 X 10*3/uL (0.20-1.00); Monocytes % (A) 6.3 %; NRBC Per 100 WBC 0 X 10*3/uL (0.00-0.01); Neutrophils # (A) 4.64 X 10*3/uL (1.80-7.70); Neutrophils % (A) 65.8 %; Platelet Count 238 X 10*3/uL (140-440); RBC 4.37 X 10*6/uL (4.10-5.20); RDW 14.2 % (11.5-14.5); WBC 7.04 X 10*3/uL (4.50-10.00)
[2022-09-03 11:19] LABS: Blood Urea Nitrogen 7.7 mg/dL (9.0-27.0); Calcium 9.1 mg/dL (8.7-10.3); Carbon Dioxide 23.8 mmol/L (21.6-31.8); Chloride 109 mmol/L (96-109); Glucose 88 mg/dL (70-110); Potassium 3.8 mmol/L (3.5-5.5); Sodium 143 mmol/L (135-145)
--- NOTE | 2022-09-03 12:21 | P.OP ---
Date of Procedure: 09/02/22 Preoperative Diagnosis: 1. C5-7 SPONDYLOSIS WITH STENOSIS, SEVERE, DISH C3-5 2. CERVICAL STENOSIS WITH RADICULOPATHY 3. UE WEAKNESS 4. NECK PAIN Postoperative Diagnosis: 1. C5-7 SPONDYLOSIS WITH STENOSIS, SEVERE, DISH C3-5 2. CERVICAL STENOSIS WITH RADICULOPATHY 3. UE WEAKNESS 4. NECK PAIN Procedure(s) Performed: 1. C5-6, C6-7 ANTERIOR CERVICAL DISCECTOMY AND FUSION (76665, [id number]) 2. APPLICATION OF NON INTEGRATED ANTERIOR CERVICAL PLATE C5-7 (77157) 3. INSERTION OF BIOMECHANICAL DEVICE X2 C5-6, C6-7 ([id number]) USE OF IO MICROSCOPE IONM WAS NOT AVAILABLE FOR THIS CASE FOR UNKNOWN REASONS. THIS WAS DISCUSSED WITH PT AND SHE WAS COMFORTABLE PROCEEDING WITHOUT. Implants: -WISAM CASCADIA 7 DEG 9MM AND 10 MM INTERBODY -WISAM OZARK ANTERIOR CERVICAL PLATE -MAGNATOS Anesthesia: GETA Surgeon: Sandeep Garcia Bicycle Assembler #1: Ernie Molina (PAMELA Dewitt Was present and assisted with all aspects of the case from positioning to dressing placement) Estimated Blood Loss (ml): 25 IV fluids (ml): 1,000 Urine output (ml): 0 Pathology: none sent Condition: stable Disposition: PACU Indications for Procedure: Ms. Agosto is presenting for evaluation of neck and bilateral upper extremity pain, bilateral upper extremity numbness, tingling, and weakness. It was my pleasure to have seen and examined Ms. Agosto. In our visit today we have had a chance to go over subjective complaints, physical examination findings and treatments including the natural course history without intervention and various interventional options. The patients imaging demonstrates: XRay Cervical multiview (Lateral, Flexion, Extension, AP, Oblique) 6 views taken at [facility] on 04/08/22: Multilevel spondylitic and degenerative changes with lordosis. Diffuse idiopathic skeletal hyperostosis is present. C5C6, C6-C7 right foraminal stenosis. No acute osseous abnormalities. [facility]: Motion artifact confounds picture however; Spondylosis noted C3-7 with the worst from C4-7 with disc collapse and disc herniation from C4-7 that causes moderate to severe central and b/l foraminal stenosis. There is Grade I listhesis of C5-6 and C6-7. There is myelomalacia noted at C4-5, C5-6 and C6-7. SAC at these levels is measured around 7.7, 9.4 and 6.2 mm respectively showing absolute stenosis Anterior osteophytes noted C2-3, C3-4 No fracture, C0-1 and C1-2 are stable. No lesions. On physical exam, Ms. Agosto demonstrates: a constant sharp, aching cervical pain that has been ongoing for the last 6 to 7 years with no known injury or trauma to indicate an exact onset of their symptoms. In addition to their cervical pain, they do report that it radiates down into the bilateral upper extremities, associated withnumbness and tingling. Overall the patient has seen a progressive increase in symptoms since their onset. Ms. Agosto symptoms are exacerbated with rotation of her head or increased activities , and due to this she note that it is increasingly difficult for her to complete many of her daily tasks. The patient is having severe sleep disturbances as well due to their ongoing pain and associated symptoms. She also states she has had an increase in her migraines over the past few years. I have explained to the patient that as their condition progresses it will cause further neurological deficits and eventual paralysis. Based on the patients imaging, physical exam, and the rapid progression and disabling nature of their symptoms, at this time I recommend surgery in the form of a: C4-7 ACDF. I discussed the risk and benefits of this procedure at length with Ms. Agosto. The patient agreed to considered pursuing the procedure above mentioned .Prior to surgery, she should follow up with her PCP for clearance. Questions were invited and answered, and the patient wishes to proceed as outlined below. Currently, I am recommendin.C4-7 ACDF Description of Procedure: C5-7 ACDF The patient was seen and examined in the preoperative area. All preoperative protocols were followed. Informed consent was obtained risks and benefits of the procedure were discussed at length. Risks including bleeding infection damage to the surrounding tissue and risk of reoperation were discussed with the patient. Risk of anesthesia up to and including was a discussed with the patient. These are outlined in the risk review. They were willing to accept these risks and all the risks of surgery. The patient was given a weight-based dose of antibiotics in the form of 2 g Ancef. The patient was seen and evaluated by the anesthesia team who deemed them fit for surgery. The site was marked, the patient was willing to proceed with the procedure. The patient was transferred to the operative suite by the Department of anesthesia. They were then drifted off to sleep by the department anesthesia and GETA was performed. The patient tolerated this well. Sanchez catheter was placed by nursing staff, a-traumatically. Once confirmation of lines and ventilation the patient was transferred to a Supine Erasto table very carefully. All bony prominences including wrists, elbows, axilla, chest, hips, and thighs, and feet were padded very well. Special attention was paid to the genitalia, and these were padded accordingly. SCDs were placed on bilateral lower extremities and were connected. Arms were well padded and placed at their side thumbs up. Once in position, again we confirmed good ventilation capabilities and that lines were running appropriately. The patients Cervical spine was then exposed. 1010s were placed outlining the incision site. Standard alcohol was used to clean the incision site and allowed to dry. C-arm was used to bio-chaitanya the patient and confirm level for incision which was marked with a skin marker. Operative briefing was performed with all teams and everyone in agreement to proceed. The patient was then prepped and draped in a normal sterile fashion. Timeout was then performed, and all parties agreed with the procedure to be performed. Transverse skin incision was then made on the right side of the patients neck 3 cm and dissection taken down to the platysma which was split transversely. Sub platysma flap was made, and interval identified between SCM and medial structures. Omohyoid was visualized and protected. Blunt dissection taken down to the anterior cervical facia which was identified. Blunt prob was then placed and lateral image taken which confirmed levels for operation. These levels were then marked with a bovi. Subperiosteal dissection of the longissimus muscles were then done over these levels identifying uncovertebral joints bilaterally. Retractor was then placed deep to these muscles and held in place with a bed arm. Starting at C6-7, Washington pins were placed into C6 and C7 and gentle distraction taken out over the levels. Fausto rongure used to remove disc material. Operating microscope brought in for visualization. Complete discectomy performed at this level with curette, rongure and pituitary. High speed mickey used to remove osteophytes anteriorly and posteriorly until PLL was identified. 6-0 up curette then used to identify the canal and resect the PLL. 2-0 and 3-0 Kerrison used then to remove PLL and disc herniation and performed b/l foraminotomies. Once good decompression accomplished, meticulous hemostasis was performed. Sizers were then placed under lateral fluoroscopy until the desired height and lordosis. Cage was then selected, packed with autograft and allograft and placed under lateral imaging. Once in good position it was tested and stable. Motors run before and after cage placement were stable. The wound was irrigated, and autograft placed lateral to the cage anteriorly for fusion. Washington pin was then removed from C7 and placed into C5. Gentle distraction taken out over C5-6 now. Complete discectomy done at C5-6 as described including decompression, b/l foraminotomies and PLL resection. Burring of endplates was minimal, osteophytes removed as described. Spacers were then sized and placed under lateral imaging. Cage selected, packed with graft and placed under lateral images. Once in position, meticulous hemostasis performed, and motors remained stable before and after cage placement. AP image confirmed good placement of cages. Wound was irrigated. A separate, non-integrated plate was then selected and sized under lateral image. The plate was then placed with screws. Fixed screws drilled into C7 b/l and screws placed. Then into C6 and finally C5 with variable screws. All locking mechanisms set, and all screws had good purchase. Final AP and lateral images taken confirmed good placement of hardware and good reduction and hindu of height. The wound was then irrigated copiously with NSS. Surgicel placed deep in the wound. A deep drain placed out a separate incision and sewed into place. Layered closure then performed with 3-0 Vicryl in the platysma and sub-Q tissue. 4-0 Strata fix in the subcuticular tissue. The wound was then cleaned, and dried and skin glue placed. Once glue dried an Opifoam was placed. The patient was then transferred back to their hospital bed a-traumatically. The drain continued to hold suction. They were placed in a soft collar. They were then awakened by the department of anesthesia having tolerated the procedure well without complications.
[2022-09-03] MEDS: BACLOFEN 10 MG TAB PO PRN (16:08)
[2022-09-03] MEDS: MONTELUKAST 10 MG TAB PO SCH (17:22)
--- NOTE | 2022-09-03 19:00 | PN ---
PROGRESS NOTE SUBJECTIVE: A 57-year-old white female, history of COPD, hearing loss, migraines, status post cervical repair. States she is feeling better with her arms. States she is breathing good at this time. We have given her breathing treatments and several inhalers while she is in the hospital. OBJECTIVE: VITAL SIGNS: Reviewed. Pulse 60s. She is on room air, saturating good. Blood pressure is stable. CARDIOVASCULAR: S1 and S2. LUNGS: Clear. GI: Soft. HEMATOLOGY: Negative Homans. PSYCHIATRIC: Fair mood and affect. NEUROLOGIC: Alert and oriented x3. She has a cervical collar on. ASSESSMENTS: 1. Status post cervical laminectomy. 2. Migraines. 3. Chronic obstructive pulmonary disease. 4. Allergic rhinitis. 5. Hypertension. PLAN: Continue current medicines from home. GERD precautions. Constipation pills. Prognosis is guarded. Medications are ordered. MMODL / IJN: [id number] /
[2022-09-04] MEDS: ACETAMINOPHEN TAB 325 MG TAB PO SCH ×3 (00:40→12:08)
[2022-09-04] MEDS: BACLOFEN 10 MG TAB PO PRN (04:37)
[2022-09-04] MEDS: PANTOPRAZOLE 40 MG TABLET PO SCH (06:31)
--- NOTE | 2022-09-04 07:41 | P.PN ---
Subjective Progress Note Date: 09/04/22 Principal diagnosis: 1. 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 Upper extremity radiculopathy 3. Upper extremity weakness Patient seen and examined this morning. She is resting comfortably in bed. Hard cervical collar is in place. Surgical dressing removed, incision is well approximated with glue intact. RAVEN drain has been removed. Clean dry dressing applied. Patient reports anterior cervical pain around incision. She states medication is managing her pain at this time. Encouraged patient to utilize ice and cold items for intake to help with sore throat. Patient reports that she feels she is having a hard time swallowing certain foods and pills seem to get stuck at time. Educated patient to trial her meds in applesauce or pudding and to stay with soft foods. Patient states she has been up to restroom with ass istance and tolerated activity well. Patient reports she does not have a walker at home, prescription has been placed in chart. Objective - Vital Signs Vital signs: Vital Signs Temp 97.8 F 09/04/22 02:00 Pulse 76 09/04/22 02:00 Resp 17 09/04/22 02:00 BP 152/80 09/04/22 02:00 Pulse Ox 98 09/04/22 02:00 FiO2 Intake & Output 09/03/22 09/04/22 09/04/22 18:59 06:59 18:59 Output Total 0 Balance 0 Output: Urine 0 Other: Voiding Method Bedpan # Voids 2 2 - Exam Physical Examination General: The patient is awake and alert, in no acute distress Skin: Skin is warm and dry with no obvious rashes or lesions. Surgical incision to the anterior cervical spine, incision is well approximated with glue intact. RAVEN drain has been removed, clean and dry dressing applied. Eye: Pupils are equal, round and reactive to light, extra-ocular movements are intact; there is normal conjunctiva bilaterally. Neck: The neck is supple, there is no tenderness and ROM intact. Cardiovascular: There is a regular rate and rhythm. No murmur, rub or gallop is appreciated. Respiratory: Lungs are clear to auscultation, respirations are non-labored, breath sounds are equal. Gastrointestinal: Soft, non-distended, non-tender abdomen. Back: There is no tenderness to palpation in the midline, paralumbar, parathoracic or buttocks region. There is no obvious deformity . Musculoskeletal: ROM limited secondary to pain and stiffness from surgical procedure. Muscle strength in all major muscle groups of bilateral upper extremities 3+/5, bilateral lower extremities 5/5. Neurological: CN 2-12 intact. There are no obvious motor or sensory deficits. Movement and coordination equal and intact. Sensory exam to light touch intact C5-T1 and intact from L2-S1. Reflexes 2/4 in bilateral upper and lower extremities. Negative Hoffmans, babinski, and clonus signs. Psychiatric: Cooperative, appropriate mood & affect, normal judgment. - Labs CBC & Chem 7: 09/03/22 06:32 09/03/22 06:32 Labs: Abnormal Lab Results - Last 24 Hours (Table) 09/03/22 Range/Units 06:32 BUN 7.7 L (9.0-27.0) mg/dL BUN/Creatinine Ratio 11.00 L (12.00-20.00) Ratio Assessment and Plan Assessment: Postop day 2: C5-C7 ACDF 1. 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 Upper extremity radiculopathy 3. Upper extremity weakness Plan: -Appreciate energy consultant and team management. -Activity: Ambulate QID, OOB all meals, up and about, limit lifting bending twisting to less than 5 lbs. Use walker or cane if needed for stability. -Daily PT/OT, increase ambulation strength and balance. -Hard cervical collar at all times, may remove for showers. -Prescription for rolling walker placed in chart. -Pain control: Adequate at this time -Meds: reviewed -GI ppx: senna, Miralax -DVT PPX: Heparin -Hygiene: Shower today. Maintain dressing clean and dry. -Encourage IS 10x/hr -Dispo: Anticipate discharge home later today with homecare *I reviewed and discussed this case with my attending Dr. Garcia, whom has reviewed this chart and films and is in agreement with assessment and plan of care as outlined above. I have personally seen and examined the patient, performed the documentation and the assessment and plan as written. Number of minutes spent on the visit: 20m.
[2022-09-04 07:58] VITALS: BP 137/84; PULSE 71; RESP 16; TEMP 98
[2022-09-04] MEDS: BUDESONIDE 0.5 MG/2 ML NEBU INHALATION SCH (09:49)
[2022-09-04] MEDS: IPRATROPIUM-ALBUTEROL 3 ML NEB INHALATION SCH ×3 (09:49→15:52)
[2022-09-04] MEDS: ALPRAZolam 1 MG TAB PO SCH (10:16)
[2022-09-04] MEDS: FUROSEMIDE 20 MG TAB PO SCH (10:16)
[2022-09-04] MEDS: LORATADINE 10 MG TAB PO SCH (10:16)
[2022-09-04] MEDS: LOSARTAN 50 MG TAB PO SCH (10:16)
[2022-09-04] MEDS: HYDROcodone/APAP 10-325MG 1 EACH TAB PO PRN (12:15)
--- NOTE | 2022-09-04 15:22 | PN ---
PROGRESS NOTE SUBJECTIVE: A 57-year-old white female, status post cervical surgery. She is still in a lot of pain. She was given breathing treatments for COPD here. OBJECTIVE: VITAL SIGNS: She is saturating 98% on room air. Blood pressure 152/80, temperature 97.8, pulse 76, respiratory rate 18. CARDIOVASCULAR: S1, S2. LUNGS: Transmitted breath sounds. HEMATOLOGY: Negative Homans. PSYCHIATRIC: Fair mood and affect. ASSESSMENT AND PLAN: Status post cervical surgery, chronic obstructive pulmonary disease. Continue current treatments including nebulizers, inhalers, blood pressure medications from home. Continue with rehab as needed. PROGNOSIS: Guarded. MMODL / IJN: [id number] /
[2022-09-07] MEDS ORDERED: INTERFERON BETA 30 MCG/0.5 ML IM SCH (09:00)
== END 2022-09-04 16:19 | disposition home health service (06) ==
LOC: OR 08:04 → 4SSUR 11:09 → OR 11:09 → 4SSUR 11:50
PROVIDERS: ADMIT Orthopaedic Surgery; ATTEND Orthopaedic Surgery
DX: M48.02 Spinal stenosis, cervical region (principal); M47.812 Spondylosis without myelopathy or radiculopathy, cervical region; M48.10 Ankylosing hyperostosis [Forestier], site unspecified; G95.89 Other specified diseases of spinal cord; M50.221 Other cervical disc displacement at C4-C5 level; M25.78 Osteophyte, vertebrae; J44.9 Chronic obstructive pulmonary disease, unspecified; K21.9 Gastro-esophageal reflux disease without esophagitis; I10 Essential (primary) hypertension; F17.290 Nicotine dependence, other tobacco product, uncomplicated; J30.9 Allergic rhinitis, unspecified; I05.0 Rheumatic mitral stenosis; H91.8X1 Other specified hearing loss, right ear; Z90.710 Acquired absence of both cervix and uterus; Z98.51 Tubal ligation status; Z79.899 Other long term (current) drug therapy; Z79.51 Long term (current) use of inhaled steroids; Z88.6 Allergy status to analgesic agent; Z88.0 Allergy status to penicillin
CPT/HCPCS: 96376; 96365; 96366 ×2; 96375; 94640 ×3; 97116; 97161; 86900; 86901; 80048; 85025; 86850; 72040; 72125; 22551; 22552; 22853 ×2; 20930; 20936; G0378 ×3; C1713; J2250; J0330; J2710; J0690; J2405; J3010; J1170; J2704; J2001

== ENCOUNTER → 2022-10-07 | Outpatient (CLI) | payer OTHER ==
--- NOTE | 2022-10-07 13:46 | FL ---
Modified barium swallow. HISTORY: Dysphagia. Modified barium swallow was performed with the department of speech pathology. The patient was prese nted with various consistencies of barium. There is no evidence for aspiration or penetration. Large ventral spurring at C3-4 results in posteri or laryngeal impression. Full report is to follow from the department of speech pathology. Impression: Normal study.
== END | disposition home or self-care (01) ==
LOC: RADFLMAIN 10:46
PROVIDERS: ATTEND Family Medicine
DX: R13.10 Dysphagia, unspecified (principal)
CPT/HCPCS: 74230

== ENCOUNTER → 2023-05-12 | Outpatient (CLI) | payer OTHER ==
--- NOTE | 2023-05-12 11:26 | CT ---
EXAMINATION TYPE: CT cervical spine wo con DATE OF EXAM: 05/12/2023 COMPARISON: 09/02/2022 HISTORY: Neck pain, recent neck sx in August, trouble swallowing since. Attention posterior cervical sp ine, per order CT DLP: 468.[address] of the cervical spine was performed with bone and soft tissue window settings submitted . Coronal and sagittal reconstruction is obtained. Postsurgical changes with hardware from C5-C6 and C7 with discectomy at C5-6 and C6-C7. Hardware chris ears intact. No evidence of fracture. Large anterior spondylosis C2-3, C3-4 and C4-5. Moderate degenerative narrowing C3-4 and C4-5. [employer] ior disc bulge with mild effacement ventral thecal sac. No evidence of central stenosis or foraminal encroachment. IMPRESSION: Stable postoperative changes of ACDF at C5-6 and C6-7. Degenerative disc disease and spondylosis as n oted.
== END | disposition home or self-care (01) ==
LOC: RADCTMAIN 10:47
PROVIDERS: ATTEND Otolaryngology
DX: M50.30 Other cervical disc degeneration, unspecified cervical region (principal); M47.812 Spondylosis without myelopathy or radiculopathy, cervical region
CPT/HCPCS: 72125

== ENCOUNTER → 2023-08-01 | Outpatient (CLI) | payer OTHER ==
--- NOTE | 2023-08-02 11:47 | FL ---
EXAMINATION TYPE: FL barium swallow DATE OF EXAM: 08/01/2023 COMPARISON: None HISTORY: Dysphasia TECHNIQUE: A single contrast UGI study is performed. FINDINGS: Fluoroscopy time: 27 seconds. DAP: 1431.62. Images: 141 Esophagus dilates to normal caliber has normal contour to the gastroesophageal junction. Gastroesopha geal junction has some has some tendency but opens to normal caliber. Patient's anterior cervical fus ion is evident. IMPRESSION: 1. Mild hesitancy but normal caliber gastroesophageal junction opening.
== END | disposition home or self-care (01) ==
LOC: RADUSWWP 10:09
PROVIDERS: ATTEND Otolaryngology
DX: R13.10 Dysphagia, unspecified (principal); R39.11 Hesitancy of micturition
CPT/HCPCS: 36415; 74220; 82565; 84520

== ENCOUNTER → 2024-01-15 | Outpatient (CLI) | payer OTHER ==
--- NOTE | 2024-01-15 11:31 | FL ---
EXAMINATION TYPE: FL barium swallow DATE OF EXAM: 01/15/2024 10:47 AM COMPARISON: 09/02/2022 CLINICAL INDICATION:Female, 58 years old with history of R13.10 dysphagia ; [facility], TECHNIQUE: The procedure was explained and patient history elicited. All patient questions were ans wered prior to start of procedure. Multiple spot fluoroscopic images of the esophagus were obtained a fter the oral ingestion of effervescent crystals and liquid barium as the contrast agent. Fluoroscopic time:35 sec Fluoroscopic images:0 Radiographs taken: 150 DAP: NOT REPORTED mGym2 FINDINGS: The esophagus demonstrates normal primary and secondary peristalsis. The esophageal mucosa is smooth without evidence of focal stricture, ulceration, or abnormal outpouching. No gastroesophageal reflu x disease was identified Note is made of anterior fixation hardware in the cervical spine which appears intact. IMPRESSION: Normal transit of contrast through the pharynx into the gastric lumen., No finding to correlate with patient's dysphagia [facility], , 01/15/2024 11:28 AM
== END | disposition home or self-care (01) ==
LOC: RADFLMAIN 10:10
PROVIDERS: ATTEND Family Medicine
DX: R13.10 Dysphagia, unspecified (principal)
CPT/HCPCS: 74220